=== PATIENT | male | born 1930 | race Caucasian/White ===

== ENCOUNTER 2016-11-16 11:22 | Emergency (ER) | payer OTHER ==
[~2016-11-16] VITALS: Ht 177.8 cm; Wt 77.2 kg
[~2016-11-16 11:22] MED LIST: ASPI325T45 PO; CEPH500C2 PO; METO-217 PO; NAPR1TAB9 PO; SULF-183 PO
[2016-11-16 11:28] VITALS: TEMP 36.8
[2016-11-16] MEDS ORDERED: SODIUM CHLORIDE 0.9% 500ML 500 ML IV STA (11:36)
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
[2016-11-16 12:02] VITALS: Ht 177.8 cm; Wt 77.2 kg
[2016-11-16 12:18] LABS: BASO % 0.2 %; BASO ABS # 0.01 K/uL (0-0.2); COMPLETE YES; EOS % 0.4 %; IG% 0.2 %; LYMPH % 27.8 %; LYMPH ABS # 1.26 K/uL (1.2-3.4); MEAN CELL VOLUME 89.4 fL (80-100); MEAN CORPUSCULAR HEMOGLOBIN 30.1 pg (25-34); MEAN CORPUSCULAR HGB CONC 33.6 g/dl (32-36); MEAN PLATELET VOLUME 9.3 fL (7.4-10.4); MONO % 5.7 %; NEUT % 65.7 %; PLATELET COUNT 168 K/uL (130-400); RED BLOOD COUNT 4.92 M/uL (4.7-6.1); WHITE BLOOD COUNT 4.53 K/uL (4.8-10.8)
[2016-11-16 12:36] LABS: BUN/CREATININE RATIO 27.9 (10-20); CALCIUM 9.1 mg/dl (8.5-10.1); CREATININE 0.82 mg/dl (0.60-1.40); POTASSIUM 3.8 mmol/L (3.5-5.1)
--- NOTE | 2016-11-16 12:38 | DIAGNOSTIC IMAGING REPORT ---
CT SCAN OF THE BRAIN WITHOUT IV CONTRAST CLINICAL HISTORY: Change in mental status. COMPARISON STUDY: No priors. TECHNIQUE: Unenhanced axial CT scan of the brain is performed from the vertex to the skull base. CT DOSE: 788.63 mGycm FINDINGS: Brain parenchyma: There are age-related involutional changes noting mild subcortical and periventricular microangiopathic change. There is no hemorrhage, mass effect, or evidence of acute territorial ischemia by CT criteria. Flannery-white matter is preserved. No extra-axial fluid collection is seen. Ventricles, sulci, cisterns: Prominent secondary to involutional change. Intracranial vasculature: There is atherosclerotic calcification of the cavernous carotid and vertebral arteries. Calvarium: Unremarkable. Sinuses and mastoids: The visualized paranasal sinuses are clear. The mastoid air cells are well pneumatized. Orbits: The bony orbits are grossly intact. IMPRESSION: There is no hemorrhage, mass effect, or evidence of acute territorial ischemia by CT criteria. Electronically signed by: Felton Green M.D. 11/16/2016 12:36 PM Dictated Date/Time: 11/16/2016 12:29 PM
[2016-11-16 12:46] LABS: THYROID STIMULATING HORMONE 1.85 uIu/ml (0.300-4.500)
[2016-11-16 13:20] VITALS: BP 140/79; PULSE 70; O2SAT 100
== END 2016-11-16 13:23 | disposition home or self-care (01) ==
LOC: EDBD 11:22 → C.EDC 11:23
DX: R41.82 Altered mental status, unspecified (principal); V46.0XXA Car driver injured in collision with other nonmotor vehicle in nontraffic accident, initial encounter; I48.91 Unspecified atrial fibrillation; I25.10 Atherosclerotic heart disease of native coronary artery without angina pectoris; I10 Essential (primary) hypertension; E78.00 Pure hypercholesterolemia, unspecified; Z98.61 Coronary angioplasty status; Z79.82 Long term (current) use of aspirin; Z79.899 Other long term (current) drug therapy

== ENCOUNTER 2018-03-27 08:21 | Inpatient (IN) ==
[2018-03-27] MEDS ORDERED: SODIUM CHLORIDE 0.9% 500 ML IV STA (08:33)
[2018-03-27] MEDS ORDERED: ONDANSETRON INJ 2 MG/ML 2 ML VIAL IV STA (08:33)
[2018-03-27] MEDS ORDERED: MoRPHine SULFATE 2 MG/ML CARP IV PRN (08:33)
--- NOTE | 2018-03-27 08:45 | Emergency Department Note ---
Entered by Joann Alvarez acting as a scribe for History of Present Illness General Chief complaint: Fall Time Seen by Provider: 03/27/18 08:24 Source: patient and family History of Present Illness Onset (ago): day(s) (yestrday afternoon) Location: right (hip) Pain Consistency: + other (episode) Maximum Pain Intensity: 7 Quality: + other (fall) Associated symptoms: + denies other symptoms (any other pain, eblow pain, congestion, recent cold, hitting his head) and + other (right hip pain); no cough The patient is an 88 year old male who presents to the Emergency Room with complaints of an episode of a fall occurring yesterday afternoon. The patients son states that he has a history of dementia. He states that yesterday afternoon he heard the patient fall. He states that when he got to the patient he was lying on his right side. He states that he got the patient up and he was complaining of right hip pain. He reports that he tried to talk the patient to coming into the ED, but he wouldnt come. The patients son states that throughout the evening he seemed to be doing okay. He states that he would walk with a walker short distances, but notes he normally does not walk with any assistance. He reports that as the evening went on, he started to complain of more right hip pain. He states that he decided to bring the patient to the ED this morning because he was nervous that the patient would fall again or that his hip was broken. He notes that the patient was unable to get out of bed. The patient denies any other pain, hitting his head, elbow pain, cough, congestion, recent cold, and use of blood thinners. Home Medications Home Medications Medication Instructions Recorded Confirmed Type acetaminophen [Tylenol Extra 500 mg PO UD PRN 03/27/18 03/27/18 History Strength] aspirin [Aspirin Low Dose] 81 mg PO DAILY 03/27/18 03/27/18 History metoprolol succinate [Toprol XL] 50 mg PO DAILY 03/27/18 03/27/18 History sertraline 25 mg PO QAM 03/27/18 03/27/18 History Allergies Allergy/AdvReac Type Severity Reaction Status Date / Time atorvastatin [From Lipitor] Allergy Unverified 03/27/18 11:16 clopidogrel [From Plavix] Allergy Unverified 03/27/18 11:16 sulfamethoxazole Allergy Unverified 03/27/18 11:16 [From Bactrim] trimethoprim [From Bactrim] Allergy Unverified 03/27/18 11:16 Past Med/Surg History Medical History Dementia Family History Other Family history non-contributory Social History marital status: / Current Living Situation: Family Current Living Situation Comment: reports living alone, unable to determine current occupational status: retired Feels Safe at Home: Yes Smoking Status: Unknown if ever smoked Hx Substance Use: No (unknown) Beliefs That Will Affect Care: None Preferred Language: Mexican Communication Ability: Impaired Therapy Director Required: No Review of Systems See HPI for pertinent positives & negatives. and A total of 10 systems reviewed and were otherwise negative Physical Exam Vital Signs Vital Signs - 24 hr 03/27/18 08:23 03/27/18 08:28 03/27/18 08:30 Temperature Temperature Source Sepsis Recent Fever Within 48 Hours Sepsis Action Taken by Nursing Pulse Rate 105 H 111 H 93 H Pulse Rate [Left Radial] Pulse Rhythm Pulse Strength Respiratory Rate 27 H 22 18 Respiratory Effort / Characteristics Respiratory Depth Blood Pressure 138/86 Blood Pressure [Right Arm] Blood Pressure Mean 103 Blood Pressure Mean [Right Arm] Blood Pressure Position [Right Arm] Pulse Oximetry 87 L 84 L Oxygen Delivery Method 03/27/18 08:32 03/27/18 08:33 03/27/18 09:00 Temperature 37.2 C Temperature Source Oral Sepsis Recent Fever Within 48 Hours No Sepsis Action Taken by Nursing No Action Required Pulse Rate 103 H 124 H 92 H Pulse Rate [Left Radial] Pulse Rhythm Regular Pulse Strength Normal Respiratory Rate 14 26 H 18 Respiratory Effort / Characteristics Non-Labored Respiratory Depth Normal Blood Pressure 146/77 H 138/86 Blood Pressure [Right Arm] Blood Pressure Mean 100 103 Blood Pressure Mean [Right Arm] Blood Pressure Position [Right Arm] Pulse Oximetry 98 99 Oxygen Delivery Method 03/27/18 09:02 03/27/18 09:03 03/27/18 09:14 Temperature Temperature Source Sepsis Recent Fever Within 48 Hours Sepsis Action Taken by Nursing Pulse Rate 99 H 105 H 124 H Pulse Rate [Left Radial] Pulse Rhythm Pulse Strength Respiratory Rate 23 19 21 Respiratory Effort / Characteristics Respiratory Depth Blood Pressure 132/79 123/75 Blood Pressure [Right Arm] Blood Pressure Mean 96 91 Blood Pressure Mean [Right Arm] Blood Pressure Position [Right Arm] Pulse Oximetry 98 99 97 Oxygen Delivery Method 03/27/18 09:30 03/27/18 09:31 03/27/18 09:47 Temperature Temperature Source Sepsis Recent Fever Within 48 Hours Sepsis Action Taken by Nursing Pulse Rate 105 H 99 H 99 H Pulse Rate [Left Radial] Pulse Rhythm Pulse Strength Respiratory Rate 19 17 21 Respiratory Effort / Characteristics Respiratory Depth Blood Pressure 121/88 104/74 Blood Pressure [Right Arm] Blood Pressure Mean 99 84 Blood Pressure Mean [Right Arm] Blood Pressure Position [Right Arm] Pulse Oximetry 82 L 94 Oxygen Delivery Method 03/27/18 10:00 03/27/18 10:03 03/27/18 10:16 Temperature Temperature Source Sepsis Recent Fever Within 48 Hours Sepsis Action Taken by Nursing Pulse Rate 122 H 96 H 101 H Pulse Rate [Left Radial] Pulse Rhythm Pulse Strength Respiratory Rate 18 19 22 Respiratory Effort / Characteristics Respiratory Depth Blood Pressure 129/111 H 123/90 Blood Pressure [Right Arm] Blood Pressure Mean 117 101 Blood Pressure Mean [Right Arm] Blood Pressure Position [Right Arm] Pulse Oximetry Oxygen Delivery Method 03/27/18 10:30 03/27/18 10:31 03/27/18 10:46 Temperature Temperature Source Sepsis Recent Fever Within 48 Hours Sepsis Action Taken by Nursing Pulse Rate 121 H 102 H 93 H Pulse Rate [Left Radial] Pulse Rhythm Pulse Strength Respiratory Rate 19 27 H 19 Respiratory Effort / Characteristics Respiratory Depth Blood Pressure 136/80 130/79 Blood Pressure [Right Arm] Blood Pressure Mean 98 96 Blood Pressure Mean [Right Arm] Blood Pressure Position [Right Arm] Pulse Oximetry Oxygen Delivery Method 03/27/18 11:00 03/27/18 11:01 03/27/18 11:30 Temperature 36.9 C Temperature Source Oral Sepsis Recent Fever Within 48 Hours Sepsis Action Taken by Nursing Pulse Rate 107 H 112 H Pulse Rate [Left Radial] 103 H Pulse Rhythm Pulse Strength Respiratory Rate 27 H 22 18 Respiratory Effort / Characteristics Respiratory Depth Blood Pressure 136/81 Blood Pressure [Right Arm] 137/95 Blood Pressure Mean 99 Blood Pressure Mean [Right Arm] 109 Blood Pressure Position [Right Arm] Lying Pulse Oximetry 94 Oxygen Delivery Method Room Air 12/25/18 12:29 Temperature Temperature Source Oral Sepsis Recent Fever Within 48 Hours Sepsis Action Taken by Nursing Pulse Rate Pulse Rate [Left Radial] Pulse Rhythm Pulse Strength Respiratory Rate Respiratory Effort / Characteristics Respiratory Depth Blood Pressure Blood Pressure [Right Arm] Blood Pressure Mean Blood Pressure Mean [Right Arm] Blood Pressure Position [Right Arm] Pulse Oximetry Oxygen Delivery Method GENERAL: Patient is in no acute distress. HEENT: No acute trauma, normocephalic atraumatic, mucous membranes moist, no nasal congestion, no scleral icterus. No scalp hematomas. NECK: No stridor, no adenopathy, no meningismus, trachea is midline. No cervical spine tenderness. LUNGS: Clear to auscultation bilaterally, no wheeze, no rhonchi, breath sounds equal. HEART: Tachycardic and irregular. No murmurs. ABDOMEN: Soft, nontender, bowel sounds positive, no hernias, no peritonitis. EXTREMITIES: Has pain to move the right hip. Right lower extremity is shortened and externally rotated. Some pain to palpate the right lateral hip. Both feet are warm to the touch. NEUROLOGIC: Awake, somewhat confuse. Moves all extremities. No focal motor deficits. SKIN: No rash, no jaundice, no diaphoresis. Course 0827: Past medical records reviewed. The patient was evaluated in room A12B, and a complete history and physical examination were performed. 14: I went to speak and update the son on the patient's test results, but he had left. I updated the patient on the test results and treatment plan. 19: I reviewed the patient's case with Dr. Wilkinson Hospitalist. He will evaluate the patient for further management. Consultations Consultation #1: I reviewed the patient's case with Dr. Wilkinson Hospitalist. He will evaluate the patient for further management. Time: 09:19 Administered Medications Lactated Ringer's (Lr) 1,000 mls @ 80 mls/hr IV .[id number] MIKALA Stop: 04/26/18 11:40 Last Admin: 03/27/18 11:50 Dose: 80 mls/hr Morphine Sulfate (Morphine Sulfate) 2 mg IV Q2H PRN PRN Reason: moderate pain (scale 4-6) Stop: 04/10/18 11:40 Last Admin: 03/27/18 13:07 Dose: 2 mg Discontinued Medications Sodium Chloride (Nss) 500 mls @ 999 mls/hr IV .Q31M STA Stop: 03/27/18 09:03 Last Infusion: 03/27/18 09:18 Dose: Admin: 03/27/18 08:52 Dose: 999 mls/hr Lorazepam (Ativan) 1 mg in 2 mls @ 2 mls/min IV NOW STA Stop: 03/27/18 09:01 Last Admin: 03/27/18 09:11 Dose: 2 mls/min Lorazepam (Ativan) 1 mg in 2 mls @ 2 mls/min IV NOW STA Stop: 03/27/18 13:21 Last Admin: 03/27/18 13:29 Dose: Not Given Lorazepam (Ativan) Confirm Administered Dose 2 mg .ROUTE .STK-MED ONE Stop: 03/27/18 13:24 Last Admin: 03/27/18 13:25 Dose: Not Given Metoprolol Tartrate (Lopressor) 5 mg IV NOW STA Stop: 03/27/18 09:11 Last Admin: 03/27/18 09:16 Dose: 5 mg Morphine Sulfate (Morphine Sulfate) 2 mg IV Q30M PRN PRN Reason: Moderate Pain (Rating 3,4,5,6) Stop: 04/10/18 08:32 Last Admin: 03/27/18 08:52 Dose: 2 mg Ondansetron HCl (Zofran) 4 mg IV NOW STA Stop: 03/27/18 08:34 Last Admin: 03/27/18 08:52 Dose: 4 mg Medical Decision Making Differential Diagnosis Differential diagnoses include hip fracture, hip contusion, pelvic fracture, knee fracture, intracranial injury, C-spine injury, dehydration, electrolyte imbalance, infection. Medical Records Attestation: I reviewed the patient's medical records. Home Medications Current Medication List: was personally reviewed by me Laboratory Data Attestation: I reviewed the patient's lab results. Result diagrams: 03/27/18 08:38 03/27/18 08:38 Lab Results 03/27/18 03/27/18 03/27/18 Range/Units 08:38 08:38 08:38 WBC 8.63 (4.8-10.8) K/uL RBC 5.14 (4.7-6.1) M/uL Hgb 15.4 (14.0-18.0) g/dL Hct 45.1 (42-52) % MCV 87.7 (80-100) fL MCH 30.0 (25-34) pg MCHC 34.1 (32-36) g/dL RDW Std Deviation 40.9 (36.4-46.3) fL RDW Coeff of Jack 12.7 (11.5-14.5) % Plt Count 172 (130-400) K/uL MPV 10.4 (7.4-10.4) fL Immature Gran % (Auto) 0.2 % Neut % (Auto) 87.3 % Lymph % (Auto) 6.4 % [place] % (Auto) 6.0 % Eos % (Auto) 0.0 % Baso % (Auto) 0.1 % Immature Gran # (Auto) 0.02 (0.00-0.02) K/uL Neut # (Auto) 7.53 H (1.4-6.5) K/uL Lymph # (Auto) 0.55 L (1.2-3.4) K/uL [place] # (Auto) 0.52 (0.11-0.59) K/uL Eos # (Auto) 0.00 (0-0.5) K/uL Baso # (Auto) 0.01 (0-0.2) K/uL PT 11.4 (9.0-12.0) Seconds INR 1.1 (0.9-1.1) APTT 27.6 (21.0-31.0) Seconds PTT Ratio 1.1 Sodium 136 (136-145) mmol/L Potassium 3.9 (3.5-5.1) mmol/L Chloride 101 (98-107) mmol/L Carbon Dioxide 23 (21-32) mmol/L Anion Gap 12.0 H (3-11) BUN 23 H (7-18) mg/dl Creatinine 1.00 (0.6-1.4) mg/dl Est Cr Clr Drug Dosing 52.7 ml/min Est GFR ( Amer) 77.5 Est GFR (Non-Af Amer) 66.9 BUN/Creatinine Ratio 23.0 H (10-20) Glucose 141 H (70-99) mg/dl Calcium 9.3 (8.5-10.1) mg/dl Magnesium 2.3 (1.8-2.4) mg/dl Troponin I < 0.015 (0-0.045) ng/ml Urine Color Urine Appearance (Clear) Urine pH (4.5-7.5) Ur Specific [place] (1.000-1.030) Urine Protein (Negative) Urine Glucose (UA) (Negative) Urine Ketones (Negative) Urine Blood (Negative) Urine Nitrite (Negative) Urine Bilirubin (Negative) Urine Urobilinogen (Negative) Ur Leukocyte Esterase (Negative) Urine WBC (Auto) (0-5) /hpf Urine RBC (Auto) (0-4) /hpf U Hyaline Cast (Auto) (0-5) /lpf U Epithel Cells (Auto) (0-5) /lpf Urine Bacteria (Auto) (Negative) Nasal Screen MRSA (PCR) (Negative) Blood Type Antibody Screen 03/27/18 03/27/18 03/27/18 Range/Units 08:38 09:55 11:45 WBC (4.8-10.8) K/uL RBC (4.7-6.1) M/uL Hgb (14.0-18.0) g/dL Hct (42-52) % MCV (80-100) fL MCH (25-34) pg MCHC (32-36) g/dL RDW Std Deviation (36.4-46.3) fL RDW Coeff of Jack (11.5-14.5) % Plt Count (130-400) K/uL MPV (7.4-10.4) fL Immature Gran % (Auto) % Neut % (Auto) % Lymph % (Auto) % [place] % (Auto) % Eos % (Auto) % Baso % (Auto) % Immature Gran # (Auto) (0.00-0.02) K/uL Neut # (Auto) (1.4-6.5) K/uL Lymph # (Auto) (1.2-3.4) K/uL [place] # (Auto) (0.11-0.59) K/uL Eos # (Auto) (0-0.5) K/uL Baso # (Auto) (0-0.2) K/uL PT (9.0-12.0) Seconds INR (0.9-1.1) APTT (21.0-31.0) Seconds PTT Ratio Sodium (136-145) mmol/L Potassium (3.5-5.1) mmol/L Chloride (98-107) mmol/L Carbon Dioxide (21-32) mmol/L Anion Gap (3-11) BUN (7-18) mg/dl Creatinine (0.6-1.4) mg/dl Est Cr Clr Drug Dosing ml/min Est GFR ( Amer) Est GFR (Non-Af Amer) BUN/Creatinine Ratio (10-20) Glucose (70-99) mg/dl Calcium (8.5-10.1) mg/dl Magnesium (1.8-2.4) mg/dl Troponin I (0-0.045) ng/ml Urine Color [place] Urine Appearance Clear (Clear) Urine pH 5.5 (4.5-7.5) Ur Specific [place] 1.025 (1.000-1.030) Urine Protein Negative (Negative) Urine Glucose (UA) Negative (Negative) Urine Ketones Trace H (Negative) Urine Blood 1+ H (Negative) Urine Nitrite Negative (Negative) Urine Bilirubin Negative (Negative) Urine Urobilinogen Negative (Negative) Ur Leukocyte Esterase Negative (Negative) Urine WBC (Auto) 0 (0-5) /hpf Urine RBC (Auto) 10-30 H (0-4) /hpf U Hyaline Cast (Auto) 0 (0-5) /lpf U Epithel Cells (Auto) 10-20 H (0-5) /lpf Urine Bacteria (Auto) Negative (Negative) Nasal Screen MRSA (PCR) Negative (Negative) Blood Type O Positive Antibody Screen NEGATIVE Imaging Data Radiologist's Impression: Radiology results as stated below per my review and the radiologist's interpretation: XR chest 1V portable HISTORY: 88 years-old Male hip fx acute chest trauma status post fall with acute right hip fracture COMPARISON: Chest radiographs 11/13/2008 TECHNIQUE: Portable supine AP view of the chest FINDINGS: Cardiomediastinal and hilar silhouettes are within normal limits. No pneumothorax, pleural effusion, focal airspace consolidation or overt pulmonary edema. Degenerative changes are seen about the shoulders and spine. IMPRESSION: No acute process. The above report was generated using voice recognition software. It may contain grammatical, syntax or spelling errors. Electronically signed by: Jean Paul Duenas M.D. 03/27/2018 9:12 AM XR hip RT 2-3V w pelvis HISTORY: 88 years-old Male fall, pain acute right hip pain status post fall COMPARISON: None available TECHNIQUE: AP view of the pelvis with 2 views of the right hip FINDINGS: Acute transcervical fracture of the right hip with mild apex superior lateral angulation. Mild impaction without significant displacement. 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 Demineralized appearance of the bones. No acute pelvic fracture. Degenerative changes of the SI joints and lower lumbar spine. Peripheral arterial calcifications are noted. IMPRESSION: Acute mildly impacted transcervical fracture of the right femur. The above report was generated using voice recognition software. It may contain grammatical, syntax or spelling errors. Electronically signed by: Jean Paul Duenas M.D. 03/27/2018 9:10 AM ECG Data Attestation: I personally reviewed and interpreted this ECG as follows: Indication: tachycardia Rate (beats per minute): 103 Rhythm: atrial fibrillation Findings: + nonspecific-ST abn (diffuse) and + PVC; no ST elevation Blood Pressure Blood Pressure Findings: Normal blood pressure Blood Pressure Disposition: did not require urgent referral MDM Narrative There is no leukocytosis or concerning anemia. No significant electrolyte abnormality or kidney failure. EKG showed A. fib without acute ischemia. Cardiac enzyme testing x1 was not consistent with acute cardiac injury. There was no coagulopathy. Urinalysis did not show evidence for infection. Chest film did not show pneumonia or CHF. Right hip and pelvis films show a right hip fracture, no pelvic fracture. By exam, there was no evidence for injury to the head, neck, chest or abdomen. The patient received IV Ativan for his agitation. He received IV morphine for pain. He was given IV Zofran and IV saline. He received IV Lopressor for the faster heart rate/A. fib. The patient needs hospitalization. Orthopedics will need to be involved. I spoke to the patient about his findings. The son was no longer in the room. I did speak with the oil field caser. The on-call hospitalist was consulted. Impression & Plan Closed fracture of right hip, Atrial fibrillation, Fall Discharge Plan Visit Data *Final* Discharge Date/Time: 03/27/18 11:11 Chief Complaint: Fall ED Provider: Felton Awad Discharge Problem: Closed fracture of right hip, Atrial fibrillation, Fall Patient Disposition: Admitted As Inpatient Discharge Instructions Interventions: ED Discharge Assessment Last Done: 03/27/18 11:11 The scribe's documentation has been prepared under my direction and personally reviewed by me in its entirety. I confirm that the note above accurately reflects all work, treatment, procedures, and medical decision making performed by me.
[2018-03-27 09:00] LABS: Basophils # (auto) 0.01 K/uL (0-0.2); Basophils % (auto) 0.1 %; Hematocrit (blood only) 45.1 % (42-52); Hemoglobin 15.4 g/dL (14.0-18.0); Immature Granulocytes # (auto) 0.02 K/uL (0.00-0.02); Immature Granulocytes % (auto) 0.2 %; Lymphocytes # (auto) 0.55 K/uL (1.2-3.4); Lymphocytes % (auto) 6.4 %; Mean Corpuscular Hgb Conc 34.1 g/dL (32-36); Mean Corpuscular Volume 87.7 fL (80-100); Mean Platelet Volume 10.4 fL (7.4-10.4); Monocytes # (auto) 0.52 K/uL (0.11-0.59); Neutrophils # (auto) 7.53 K/uL (1.4-6.5); Neutrophils % (auto) 87.3 %; Platelet Count 172 K/uL (130-400); RDW Coefficient of Variation 12.7 % (11.5-14.5); RDW Standard Deviation 40.9 fL (36.4-46.3); Red Blood Count 5.14 M/uL (4.7-6.1); White Blood Count 8.63 K/uL (4.8-10.8)
[2018-03-27] MEDS ORDERED: LORazepam 1 MG/2 ML VIAL IV STA ×2 (09:00→13:20)
[2018-03-27 09:09] LABS: INR 1.1 (0.9-1.1); Partial Thromboplastin Ratio 1.1; Partial Thromboplastin Time 27.6 Seconds (21.0-31.0); Prothrombin Time 11.4 Seconds (9.0-12.0)
[2018-03-27] MEDS ORDERED: METOPROLOL TARTRATE 1 MG/ML VIAL IV STA (09:10)
--- NOTE | 2018-03-27 09:13 | XRay Report ---
XR hip RT 2-3V w pelvis HISTORY: 88 years-old Male fall, pain acute right hip pain status post fall COMPARISON: None available TECHNIQUE: AP view of the pelvis with 2 views of the right hip FINDINGS: Acute transcervical fracture of the right hip with mild apex superior lateral angulation. Mild impact ion without significant displacement. Mild to moderate osteoarthritis of the bilateral femoral acetab ular joints. Demineralized appearance of the bones. No acute pelvic fracture. Degenerative changes of the SI joints and lower lumbar spine. Peripheral arterial calcifications are noted. IMPRESSION: Acute mildly impacted transcervical fracture of the right femur. The above report was generated using voice recognition software. It may contain grammatical, syntax o r spelling errors. Electronically signed by: Jean Paul Duenas M.D. 03/27/2018 9:10 AM
--- NOTE | 2018-03-27 09:14 | XRay Report ---
XR chest 1V portable HISTORY: 88 years-old Male hip fx acute chest trauma status post fall with acute right hip fracture COMPARISON: Chest radiographs 11/13/2008 TECHNIQUE: Portable supine AP view of the chest FINDINGS: Cardiomediastinal and hilar silhouettes are within normal limits. No pneumothorax, pleural effusion, focal airspace consolidation or overt pulmonary edema. Degenerative changes are seen about the should ers and spine. IMPRESSION: No acute process. The above report was generated using voice recognition software. It may contain grammatical, syntax o r spelling errors. Electronically signed by: Jean Paul Duenas M.D. 03/27/2018 9:12 AM
[2018-03-27 09:15] LABS: Blood Urea Nitrogen 23 mg/dl (7-18); Calcium 9.3 mg/dl (8.5-10.1); Carbon Dioxide 23 mmol/L (21-32); Chloride 101 mmol/L (98-107); Creatinine Clr Calc Pharmacy 52.7 ml/min; Est GFR (African American) 77.5; Est GFR (Non-African American) 66.9; Glucose 141 mg/dl (70-99); Magnesium 2.3 mg/dl (1.8-2.4); Potassium 3.9 mmol/L (3.5-5.1); Sodium 136 mmol/L (136-145)
[2018-03-27 09:20] LABS: Troponin I < 0.015 ng/ml (0-0.045)
[2018-03-27 10:08] LABS: Appearance Urine Clear (Clear); Bacteria Urine Automated Negative (Negative); Bilirubin Urine Negative (Negative); Cast Urine Automated 0 /lpf (0-5); Color Urine Orange; Glucose Urine UA Negative (Negative); Ketones Urine Trace (Negative); Leukocyte Esterase Urine Negative (Negative); Nitrite Urine Negative (Negative); Protein Urine Negative (Negative); Specific Gravity Urine 1.025 (1.000-1.030); Urobilinogen Urine Negative (Negative); WBC Urine Automated 0 /hpf (0-5); pH Urine 5.5 (4.5-7.5)
--- NOTE | 2018-03-27 10:39 | History & Physical Report ---
Date of Service March 27, 2018 Assessment & Plan (1) Closed fracture of right hip: 88M here for mechanical fall while at home 03/26, brought to ED by son with whom he lives, due to limited mobility and pain. Found to have closed right hip fracture on XR. Closed fracture of right hip - as seen on XR - not currently in any pain - tylenol PRN for mild pain - morphine IV for mod pain - Non urgent ortho/anesthesia consult - NPO with IVF @ 80 ml/hr - SCDs, no chemical anticoagulation while await whether operative per ortho - PT/OT will be ordered once ortho sees Paroxysmal Atrial fibrillation - Pt was also found to be in Afib in the ER and given 5mg IV Metorpolol. - On review of outpatient records, pt has known PAF and is supposed to be on Toprol XL 50mg daily, has refused coumadin "adamantly" in the outpatient setting due to previous episode of genitourinary bleeding. - rate controlled 90s-low 100s - no anginal symptoms, Trop x1 wnl (will not trend) - Due to lack of hospital records will await echo results prior to obtaining risk stratification, pt will likely be moderate to high risk surgical candidate. -non urgent TTE pending -last TSH from Nov 2016 1.85. -continue home Toprol XL 50mg daily Ongoing medical issues: CAD - RCA stent in 2014 - allegedly allergic to lipitor and plavix - cont home ASA 81mg daily Bladder cancer - followed by urology as of 2015 with cystoscopy with fulguration for bladder tumor 2014 Dementia -stable, reorientation Depression -cont PO sertraline FEN/GI: LR running at 80ml/hr while NPO. DVT ppx: SCDs. Chem anticoag contraindicated while possibly pre-op CODE STATUS: FULL DISPO: Tele to monitor afib. Present on Admission?: Yes (2) Atrial fibrillation: Present on Admission?: Yes (3) Fall: Present on Admission?: Yes (4) DVT prophylaxis: (5) Depression: Present on Admission?: Yes (6) Dementia: Present on Admission?: Yes History of Present Illness Chief Complaint: mechanical fall while at home, closed right hip fracture Primary Care Provider: David Araya MD 88M here for mechanical fall while at home 03/26, brought to ED by son with whom he lives, due to limited mobility and pain. Found to have closed right hip fracture on XR. Family not present in room during exam. Very little HPI provided by patient due to baseline of moderate to advanced dementia. HPI received from admitting ER Doc. Pt was accompanied by son, per son pt lives at home, has a baseline of dementia, there was a mechanical fall that occured on the evening of 03/26/18. Pt declined coming to the hospital, pt went to sleep and woke up in severe pain and inability to walk. Pt was brought into the ER and was found to have an acute mildly impacted transcervical fracture of the right femur. Pt was also found to be in Afib in the ER and given 5mg IV Metorpolol. On review of outpatient records, pt has known paroxysmal atrial fibrillation and is to be on Toprol XL 50mg daily, has refused coumadin "adamantly" in the outpatient setting due to previous episode of genitourinary bleeding. ED Course: Pt received NSS, Ativan and Morphine in the ER. Pt was also found to be in Afib without any previous history of Afib. Pt was given 5mg IV Metoprolol in the ER. PMH is also significant for CAD with cardiac catheterization 2014 showed 40% left main disease as well as mild to moderate stenosis in other vessels + Bare- metal stent was placed in the RCA at that time, Glaucoma, HLD, HTN, bladder cancer, memory impairment. PSH cystoscopy with fulguration for bladder tumor 2014 Meds: ASA, Toprol XL 50mg daily ALL: lipitor, plavix, bactrim DS Allergies Allergy/AdvReac Type Severity Reaction Status Date / Time atorvastatin [From Lipitor] Allergy Unverified 03/27/18 11:16 clopidogrel [From Plavix] Allergy Unverified 03/27/18 11:16 sulfamethoxazole Allergy Unverified 03/27/18 11:16 [From Bactrim] trimethoprim [From Bactrim] Allergy Unverified 03/27/18 11:16 Home Medications Home Medications Medication Instructions Recorded Confirmed Type acetaminophen [Tylenol Extra 500 mg PO UD PRN 03/27/18 03/27/18 History Strength] aspirin [Aspirin Low Dose] 81 mg PO DAILY 03/27/18 03/27/18 History metoprolol succinate [Toprol XL] 50 mg PO DAILY 03/27/18 03/27/18 History sertraline 25 mg PO QAM 03/27/18 03/27/18 History Past Med/Surg History Medical History Dementia Family History Other Family history non-contributory Social History marital status: / Current Living Situation: Family Current Living Situation Comment: reports living alone, unable to determine current occupational status: retired Feels Safe at Home: Yes Smoking Status: Unknown if ever smoked Hx Substance Use: No (unknown) Beliefs That Will Affect Care: None Preferred Language: Moroccan Communication Ability: Impaired [place] Required: No Review of Systems All systems reviewed & are unremarkable except as noted in HPI & below (denies pain in head, chest, abdomen, or lower extremities. ) Physical Exam 2 Vital Signs (Past 24 Hours): Last Vital Signs Temp 37.2 C 03/27/18 08:33 Pulse 101 H 03/27/18 10:16 Resp 22 03/27/18 10:16 BP 123/90 03/27/18 10:16 Pulse Ox 94 03/27/18 09:47 Physical Exam: Vitals noted as above. Atrial fibrillation on telemetry, rate < 100. GENERAL: Awake, oriented to person but not to time or place. Well-appearing, in no distress HENT: Normocephalic, atraumatic. EYES: Normal conjunctiva. Sclera non-icteric. NECK: Supple. Full range of motion. no JVD RESPIRATORY: Clear to auscultation. CARDIAC: Irreg/irreg, rate <100. Extremities warm and well perfused. Pulses equal. ABDOMEN: Soft, non-distended. No tenderness to palpation. No rebound or guarding. No masses. LOWER EXTREMITIES: Calves are equal size bilaterally and non-tender. No edema. No discoloration. MSK: RLE is externally rotated, neurovascularly in tact. Mild TTP at right hip. NEURO: No gross focal motor deficits noted, CN II-XII in tact. SKIN: No rash or jaundice noted. No visible bruising. Results & Data Laboratory Results 03/27/18 03/27/18 03/27/18 Range/Units 09:55 08:38 08:38 WBC (4.8-10.8) K/uL RBC (4.7-6.1) M/uL Hgb (14.0-18.0) g/dL Hct (42-52) % MCV (80-100) fL MCH (25-34) pg MCHC (32-36) g/dL RDW Std Deviation (36.4-46.3) fL RDW Coeff of Jack (11.5-14.5) % Plt Count (130-400) K/uL MPV (7.4-10.4) fL Immature Gran % (Auto) % Neut % (Auto) % Lymph % (Auto) % [place] % (Auto) % Eos % (Auto) % Baso % (Auto) % Immature Gran # (Auto) (0.00-0.02) K/uL Neut # (Auto) (1.4-6.5) K/uL Lymph # (Auto) (1.2-3.4) K/uL [place] # (Auto) (0.11-0.59) K/uL Eos # (Auto) (0-0.5) K/uL Baso # (Auto) (0-0.2) K/uL PT (9.0-12.0) Seconds INR (0.9-1.1) APTT (21.0-31.0) Seconds PTT Ratio Sodium 136 (136-145) mmol/L Potassium 3.9 (3.5-5.1) mmol/L Chloride 101 (98-107) mmol/L Carbon Dioxide 23 (21-32) mmol/L Anion Gap 12.0 H (3-11) BUN 23 H (7-18) mg/dl Creatinine 1.00 (0.6-1.4) mg/dl Est Cr Clr Drug Dosing 52.7 ml/min Est GFR ( Amer) 77.5 Est GFR (Non-Af Amer) 66.9 BUN/Creatinine Ratio 23.0 H (10-20) Glucose 141 H (70-99) mg/dl Calcium 9.3 (8.5-10.1) mg/dl Magnesium 2.3 (1.8-2.4) mg/dl Troponin I < 0.015 (0-0.045) ng/ml Urine Color [place] Urine Appearance Clear (Clear) Urine pH 5.5 (4.5-7.5) Ur Specific [place] 1.025 (1.000-1.030) Urine Protein Negative (Negative) Urine Glucose (UA) Negative (Negative) Urine Ketones Trace H (Negative) Urine Blood 1+ H (Negative) Urine Nitrite Negative (Negative) Urine Bilirubin Negative (Negative) Urine Urobilinogen Negative (Negative) Ur Leukocyte Esterase Negative (Negative) Urine WBC (Auto) 0 (0-5) /hpf Urine RBC (Auto) 10-30 H (0-4) /hpf U Hyaline Cast (Auto) 0 (0-5) /lpf U Epithel Cells (Auto) 10-20 H (0-5) /lpf Urine Bacteria (Auto) Negative (Negative) Blood Type O Positive Antibody Screen NEGATIVE 03/27/18 03/27/18 Range/Units 08:38 08:38 WBC 8.63 (4.8-10.8) K/uL RBC 5.14 (4.7-6.1) M/uL Hgb 15.4 (14.0-18.0) g/dL Hct 45.1 (42-52) % MCV 87.7 (80-100) fL MCH 30.0 (25-34) pg MCHC 34.1 (32-36) g/dL RDW Std Deviation 40.9 (36.4-46.3) fL RDW Coeff of Jack 12.7 (11.5-14.5) % Plt Count 172 (130-400) K/uL MPV 10.4 (7.4-10.4) fL Immature Gran % (Auto) 0.2 % Neut % (Auto) 87.3 % Lymph % (Auto) 6.4 % [place] % (Auto) 6.0 % Eos % (Auto) 0.0 % Baso % (Auto) 0.1 % Immature Gran # (Auto) 0.02 (0.00-0.02) K/uL Neut # (Auto) 7.53 H (1.4-6.5) K/uL Lymph # (Auto) 0.55 L (1.2-3.4) K/uL [place] # (Auto) 0.52 (0.11-0.59) K/uL Eos # (Auto) 0.00 (0-0.5) K/uL Baso # (Auto) 0.01 (0-0.2) K/uL PT 11.4 (9.0-12.0) Seconds INR 1.1 (0.9-1.1) APTT 27.6 (21.0-31.0) Seconds PTT Ratio 1.1 Sodium (136-145) mmol/L Potassium (3.5-5.1) mmol/L Chloride (98-107) mmol/L Carbon Dioxide (21-32) mmol/L Anion Gap (3-11) BUN (7-18) mg/dl Creatinine (0.6-1.4) mg/dl Est Cr Clr Drug Dosing ml/min Est GFR ( Amer) Est GFR (Non-Af Amer) BUN/Creatinine Ratio (10-20) Glucose (70-99) mg/dl Calcium (8.5-10.1) mg/dl Magnesium (1.8-2.4) mg/dl Troponin I (0-0.045) ng/ml Urine Color Urine Appearance (Clear) Urine pH (4.5-7.5) Ur Specific [place] (1.000-1.030) Urine Protein (Negative) Urine Glucose (UA) (Negative) Urine Ketones (Negative) Urine Blood (Negative) Urine Nitrite (Negative) Urine Bilirubin (Negative) Urine Urobilinogen (Negative) Ur Leukocyte Esterase (Negative) Urine WBC (Auto) (0-5) /hpf Urine RBC (Auto) (0-4) /hpf U Hyaline Cast (Auto) (0-5) /lpf U Epithel Cells (Auto) (0-5) /lpf Urine Bacteria (Auto) (Negative) Blood Type Antibody Screen Diagnostic Findings 03/27/18 XR hip RT 2-3V w pelvis reviewed, shows acute mildly impacted transcervical fracture of the right femur. 03/27/18 CXR shows no acute process. Medications Administered Current Inpatient Medications Morphine Sulfate (Morphine Sulfate) 2 mg IV Q30M PRN PRN Reason: Moderate Pain (Rating 3,4,5,6) Stop: 04/10/18 08:32 Last Admin: 03/27/18 08:52 Dose: 2 mg ECG Additional Comments: atrial fibrillation, rate 103, QTc 461. Code Status & VTE Plan Code Status FULL VTE Prophylaxis Plan VTE Prophylaxis will be ordered: Yes Reason for no VTE drug order: Contraindicated Supervising Physician Co-Signing Physician Notes I personally examined the patient and verified all bryant points of history and exam, discussed case, and agree with decision making with Dr Fernandez. No meaningful HPI or review of systems obtainable from patient. The son is not present, and it appears he left fairly early in the ER course. I attempted to call the number in the chart, it goes to a voicemail of a name completely different than the name listed as the contact, therefore due to hipaa, I do not feel it appropriate to leave any message right now. Vitals noted, in general he is disoriented but appears to be in no distress. HEENT normal cephalic atraumatic mucous membranes are moist. Cardio is regular without rubs murmurs gallops. Lungs clear to auscultation bilaterally no rales rhonchi or wheezes good effort. Skin shows no rashes, no pallor, no icterus. Hip fractureorthopedics consult for repair. Despite his prior history, risks/ benefits favor repair, and therefore he is medically acceptable risk for the planned procedure. Anesthesia has been consulted. Check vitamin D, consider DEXA as an outpatient. DVT prophylaxispostop per orthopedics, for today we will give him a one-time dose of heparin. Dementia with agitationpreop with a broken hip that he is not aware of, the situation is somewhat difficult. Right now we will try with pain control ( Tylenol Toradol and morphine) and gentle sedation with Ativan which we will immediately cease after the surgery. Atrial fibrillationrate is controlled, continue current care otherwise, otherwise as above. I am unable to reach the son regarding CODE STATUS, discharge planning, etc. We will continue to try to reach family. For now, given the high morbidity/ mortality that comes with an untreated hip fracture, it appears most prudent to proceed with a plan towards repair. Resident Activity Tracking Resident Involvement: Resident Care Provided Care Provided: [facility] Medicine _ (1) Atrial fibrillation Atrial fibrillation type: unspecified Qualified Code(s): I48.91 - Unspecified atrial fibrillation (2) Fall Encounter type: initial encounter Qualified Code(s): W19.XXXA - Unspecified fall, initial encounter (3) Closed fracture of right hip Encounter type: initial encounter Fracture healing: Qualified Code(s): S72.001A - Fracture of unspecified part of neck of right femur, initial encounter for closed fracture
[2018-03-27] MEDS ORDERED: ONDANSETRON INJ 2 MG/ML 2 ML VIAL IV PRN (11:41)
[2018-03-27] MEDS ORDERED: SOD PHOSPHATE/SOD BIPHOSPHATE ENEMA 132 ML BTL PR PRN (11:41)
[2018-03-27] MEDS ORDERED: MAGNESIUM HYDROXIDE SUSP 30 ML UDC PO PRN (11:41)
[2018-03-27] MEDS ORDERED: ACETAMINOPHEN 325 MG TAB PO PRN (11:41)
[2018-03-27] MEDS ORDERED: BISACODYL 10 MG SUPP PR PRN (11:41)
[2018-03-27] MEDS ORDERED: NALOXONE HCL 0.4 MG/1 ML VIAL/CARP IV PRN (11:41)
[2018-03-27] MEDS: LACTATED RINGER'S 1,000 ML IV SCH ×2 (11:50→23:41)
[2018-03-27] MEDS: MoRPHine SULFATE 2 MG/ML CARP IV PRN (13:07)
[2018-03-27] MEDS ORDERED: LORazepam 2 MG/4 ML VIAL ONE (13:23)
[2018-03-27] MEDS ORDERED: HEPARIN SOD 5,000 UNIT/0.5 ML VIAL SQ ONE (16:15)
[2018-03-27] MEDS: ACETAMINOPHEN 325 MG TAB PO SCH (18:28)
[2018-03-27] MEDS: ACETAMINOPHEN 65 ML IV SCH ×2 (18:32→23:40)
[2018-03-27] MEDS ORDERED: ACETAMINOPHEN 1000 MG/100 ML IV IV SCH (20:00)
[2018-03-27] MEDS: DOCUSATE SODIUM/SENNA 50/8.6MG TAB PO SCH (21:29)
--- NOTE | 2018-03-27 22:30 | Anesthesiology Consultation ---
Date of Service March 27, 2018 Assessment & Plan (1) Encounter for pre-operative examination: Chart Review Chart Review: charge entry clerk initiated pending echo and completion of medicine consult History Height/Weight Height: 5 ft 10 in Weight: 79 kg Allergies Allergy/AdvReac Type Severity Reaction Status Date / Time atorvastatin [From Lipitor] Allergy Unverified 03/27/18 11:16 clopidogrel [From Plavix] Allergy Unverified 03/27/18 11:16 sulfamethoxazole Allergy Unverified 03/27/18 11:16 [From Bactrim] trimethoprim [From Bactrim] Allergy Unverified 03/27/18 11:16 Medications Home Medications Medication Instructions Recorded Confirmed Last Taken acetaminophen [Tylenol Extra 500 mg PO UD PRN 03/27/18 03/27/18 03/27/18 07:30 Strength] aspirin [Aspirin Low Dose] 81 mg PO DAILY 03/27/18 03/27/18 Unknown metoprolol succinate [Toprol XL] 50 mg PO DAILY 03/27/18 03/27/18 Unknown sertraline 25 mg PO QAM 03/27/18 03/27/18 03/27/18 07:30 Active Medications Generic Name Dose Route Start Last Admin Trade Name Freq PRN Reason Stop Dose Admin Acetaminophen 650 mg 03/27/18 17:00 03/27/18 18:28 Tylenol PO 04/26/18 18:06 Not Given QID MIKALA Lactated Ringer's 1,000 mls @ 80 mls/hr 03/27/18 11:41 03/27/18 11:50 Lr IV 04/26/18 11:40 80 mls/hr .[id number] MIKALA Administration Acetaminophen 65 mls @ 260 mls/hr 03/27/18 18:15 03/27/18 20:03 Ofirmev IV 03/29/18 19:59 Infused Q6H MIKALA Infusion Morphine Sulfate 2 mg 03/27/18 11:41 03/27/18 13:07 Morphine Sulfate IV 04/10/18 11:40 2 mg Q2H PRN Administration moderate pain (scale 4-6) Senna/Docusate Sodium 2 tab 03/27/18 21:00 03/27/18 21:29 Senokot S PO 04/26/18 20:59 Not Given HS MIKALA Beta Ashvin Beta Ashvin Taken Within 24 Hours: Yes Past Medical History Medical History Bladder cancer CAD (coronary artery disease) Dementia Paroxysmal atrial fibrillation Past Family History Family History Other Family history non-contributory Past Surgical History Surgical History Hx of transurethral destruction of bladder lesion Stented coronary artery Social History Smoking Status: Unknown if ever smoked Alcohol Intake Frequency Comment: unknowns Hx Substance Use: No (unknown) Physical Exam Vital Signs Last Vital Signs Temp 36.6 C 03/27/18 19:57 Pulse 110 H 03/27/18 19:57 Resp 20 03/27/18 19:57 BP 136/82 03/27/18 19:57 Pulse Ox 95 03/27/18 19:57 Testing Electrocardiogram Date: 03/27/18 Findings: + AFIB @ (103 possible old inf [place]) Echocardiogram pending Laboratory Results 03/27/18 08:38 03/27/18 08:38 Blood Type O Positive 03/27/18 08:38 Antibody Screen NEGATIVE 03/27/18 08:38 PT 11.4 Seconds (9.0-12.0) 03/27/18 08:38 INR 1.1 (0.9-1.1) 03/27/18 08:38 APTT 27.6 Seconds (21.0-31.0) 03/27/18 08:38 Urine Color [place] 03/27/18 09:55 Urine Appearance Clear (Clear) 03/27/18 09:55 Urine pH 5.5 (4.5-7.5) 03/27/18 09:55 Ur Specific [place] 1.025 (1.000-1.030) 03/27/18 09:55 Urine Protein Negative (Negative) 03/27/18 09:55 Urine Glucose (UA) Negative (Negative) 03/27/18 09:55 Urine Ketones Trace (Negative) H 03/27/18 09:55 Urine Nitrite Negative (Negative) 03/27/18 09:55 Ur Leukocyte Esterase Negative (Negative) 03/27/18 09:55 Urine WBC (Auto) 0 /hpf (0-5) 03/27/18 09:55 Urine RBC (Auto) 10-30 /hpf (0-4) H 03/27/18 09:55 U Hyaline Cast (Auto) 0 /lpf (0-5) 03/27/18 09:55 U Epithel Cells (Auto) 10-20 /lpf (0-5) H 03/27/18 09:55 Urine Bacteria (Auto) Negative (Negative) 03/27/18 09:55
[2018-03-28] MEDS: LORazepam 0.5 MG/1 ML VIAL IV PRN (00:12)
[2018-03-28] MEDS ORDERED: METOPROLOL TARTRATE 1 MG/ML VIAL IV PRN (01:28)
[2018-03-28] MEDS: ACETAMINOPHEN 65 ML IV SCH (05:52)
[2018-03-28] MEDS ORDERED: CEFAZOLIN 2000MG 2,000 MG/15 ML SYR IV SCH (06:00)
[2018-03-28] MEDS ORDERED: INFLUENZA VIRUS QUAD VACCINE 0.5 ML SYR IM ONE (06:15)
--- NOTE | 2018-03-28 07:07 | Family Medicine Progress Note ---
Date of Service March 28, 2018 Assessment & Plan (1) Closed fracture of right hip: 88M here for mechanical fall while at home 03/26, brought to ED by son with whom he lives, due to limited mobility and pain. Found to have closed right hip fracture on XR. Closed fracture of right hip - as seen on XR - Vit d level at 20 - plan for surgery today, ~13:00. - tylenol scheduled PO - morphine IV PRN for mod pain - NPO with IVF @ 80 ml/hr - SCDs, no chemical anticoagulation while await whether operative per ortho - PT/OT will be ordered once ortho sees Paroxysmal Atrial fibrillation - Pt was also found to be in Afib in the ER and given 5mg IV Metorpolol. - On review of outpatient records, pt has known PAF and is supposed to be on Toprol XL 50mg daily, has refused coumadin "adamantly" in the outpatient setting due to previous episode of genitourinary bleeding. - rate controlled 90s-low 100s - no anginal symptoms, Trop x1 wnl (will not trend) -non urgent TTE pending, performed, reading is pending. -last TSH from Nov 2016 1.85. -continue home Toprol XL 50mg daily Ongoing medical issues: CAD - RCA stent in 2014 - allegedly allergic to lipitor and plavix - HELD home ASA 81mg daily while pre op Bladder cancer - followed by urology as of 2015 with cystoscopy with fulguration for bladder tumor 2014 Dementia -stable, reorientation Depression -cont PO sertraline FEN/GI: LR running at 80ml/hr while NPO. DVT ppx: SCDs. Chem anticoag contraindicated while possibly pre-op CODE STATUS: FULL DISPO: Tele to monitor afib. Spoke with pt's daughter and POA Nusrat Gilmore ) and updated her re: plan for surgery and need for consent forms signed given pt does not have capacity. She will be in later today 10am. (2) Atrial fibrillation: (3) Fall: (4) DVT prophylaxis: (5) Depression: (6) Dementia: Supervising Physician Co-Signing Physician Notes I personally examined the patient and verified all bryant points of history and exam, discussed case, and agree with decision making with Dr Fernandez. No meaningful HPI or review of systems obtainable from patient. Family present , and we discussed the case in depth. I answer all questions to the best my ability, and to their satisfaction. Vitals noted, in general he is disoriented but appears to be in no distress. HEENT normal cephalic atraumatic mucous membranes are moist. Lungs unlabored no accessory muscle use good effort. Skin shows no rashes pallor or icterus Hip fracturefor repair today, PT/OT eval and treat, likely will need SNF placement. Vitamin D pending, consider DEXA as an outpatient. DVT prophylaxispostop per orthopedics, he had a one-time dose of heparin subcu yesterday. Dementia with agitationpain control, supportive care, supervision, and redirection when possible. Atrial fibrillationrate is controlled, he apparently declined anticoagulation whenever he had the ability to make informed decisions, based on prior documentation. Subjective No acute events overnight per nursing. Tolerated PO meds this AM. Otherwise NPO in anticipation for orthopedic surgery on right hip later today at 13:00. Spoke with pt's daughter and POYolanda Gilmore ([phone]) and updated her re: plan for surgery and need for consent forms signed given pt does not have capacity. She will be in later today 10am. Informed nursing. Review of Systems Unobtainable due to mental health condition Physical Exam 2 Vital Signs (Past 24 Hours): Last Vital Signs Temp 36.5 C 03/28/18 06:53 Pulse 114 H 03/28/18 06:53 Resp 16 03/28/18 06:53 BP 110/69 03/28/18 06:53 Pulse Ox 95 03/28/18 06:53 Physical Exam: Vitals noted as above. Atrial fibrillation on telemetry, rate < 100. GENERAL: Awake, oriented to person but not to time or place. Well-appearing, in no distress HENT: Normocephalic, atraumatic. EYES: Normal conjunctiva. Sclera non-icteric. NECK: Supple. Full range of motion. no JVD RESPIRATORY: Clear to auscultation. CARDIAC: Irreg/irreg, rate <100. Extremities warm and well perfused. Pulses equal. ABDOMEN: Soft, non-distended. No tenderness to palpation. No rebound or guarding. No masses. LOWER EXTREMITIES: Calves are equal size bilaterally and non-tender. No edema. No discoloration. MSK: RLE is externally rotated, neurovascularly in tact. Mild TTP at right hip. NEURO: No gross focal motor deficits noted, CN II-XII in tact. SKIN: No rash or jaundice noted. No visible bruising. Results & Data Laboratory Results 03/28/18 03/28/18 03/28/18 Range/Units 07:24 07:24 07:24 WBC 7.67 (4.8-10.8) K/uL RBC 4.66 L (4.7-6.1) M/uL Hgb 14.2 (14.0-18.0) g/dL Hct 41.7 L (42-52) % MCV 89.5 (80-100) fL MCH 30.5 (25-34) pg MCHC 34.1 (32-36) g/dL RDW Std Deviation 41.9 (36.4-46.3) fL RDW Coeff of Jack 12.9 (11.5-14.5) % Plt Count 140 (130-400) K/uL MPV 9.6 (7.4-10.4) fL Immature Gran % (Auto) 0.1 % Neut % (Auto) 77.2 % Lymph % (Auto) 12.1 % [place] % (Auto) 10.0 % Eos % (Auto) 0.5 % Baso % (Auto) 0.1 % Immature Gran # (Auto) 0.01 (0.00-0.02) K/uL Neut # (Auto) 5.91 (1.4-6.5) K/uL Lymph # (Auto) 0.93 L (1.2-3.4) K/uL [place] # (Auto) 0.77 H (0.11-0.59) K/uL Eos # (Auto) 0.04 (0-0.5) K/uL Baso # (Auto) 0.01 (0-0.2) K/uL Sodium 138 (136-145) mmol/L Potassium 4.0 (3.5-5.1) mmol/L Chloride 103 (98-107) mmol/L Carbon Dioxide 27 (21-32) mmol/L Anion Gap 8.0 (3-11) BUN 20 H (7-18) mg/dl Creatinine 0.90 (0.6-1.4) mg/dl Est Cr Clr Drug Dosing 58.6 ml/min Est GFR ( Amer) 88.1 Est GFR (Non-Af Amer) 76.0 BUN/Creatinine Ratio 22.7 H (10-20) Glucose 92 (70-99) mg/dl Calcium 8.8 (8.5-10.1) mg/dl 25-OH Vitamin D Total 20.7 L (30-100) ng/ml Urine Color Urine Appearance (Clear) Urine pH (4.5-7.5) Ur Specific [place] (1.000-1.030) Urine Protein (Negative) Urine Glucose (UA) (Negative) Urine Ketones (Negative) Urine Blood (Negative) Urine Nitrite (Negative) Urine Bilirubin (Negative) Urine Urobilinogen (Negative) Ur Leukocyte Esterase (Negative) Urine WBC (Auto) (0-5) /hpf Urine RBC (Auto) (0-4) /hpf U Hyaline Cast (Auto) (0-5) /lpf U Epithel Cells (Auto) (0-5) /lpf Urine Bacteria (Auto) (Negative) Nasal Screen MRSA (PCR) (Negative) Blood Type Antibody Screen 03/27/18 03/27/18 03/27/18 Range/Units 11:45 09:55 08:38 WBC (4.8-10.8) K/uL RBC (4.7-6.1) M/uL Hgb (14.0-18.0) g/dL Hct (42-52) % MCV (80-100) fL MCH (25-34) pg MCHC (32-36) g/dL RDW Std Deviation (36.4-46.3) fL RDW Coeff of Jack (11.5-14.5) % Plt Count (130-400) K/uL MPV (7.4-10.4) fL Immature Gran % (Auto) % Neut % (Auto) % Lymph % (Auto) % [place] % (Auto) % Eos % (Auto) % Baso % (Auto) % Immature Gran # (Auto) (0.00-0.02) K/uL Neut # (Auto) (1.4-6.5) K/uL Lymph # (Auto) (1.2-3.4) K/uL [place] # (Auto) (0.11-0.59) K/uL Eos # (Auto) (0-0.5) K/uL Baso # (Auto) (0-0.2) K/uL Sodium (136-145) mmol/L Potassium (3.5-5.1) mmol/L Chloride (98-107) mmol/L Carbon Dioxide (21-32) mmol/L Anion Gap (3-11) BUN (7-18) mg/dl Creatinine (0.6-1.4) mg/dl Est Cr Clr Drug Dosing ml/min Est GFR ( Amer) Est GFR (Non-Af Amer) BUN/Creatinine Ratio (10-20) Glucose (70-99) mg/dl Calcium (8.5-10.1) mg/dl 25-OH Vitamin D Total (30-100) ng/ml Urine Color Saline Urine Appearance Clear (Clear) Urine pH 5.5 (4.5-7.5) Ur Specific [place] 1.025 (1.000-1.030) Urine Protein Negative (Negative) Urine Glucose (UA) Negative (Negative) Urine Ketones Trace H (Negative) Urine Blood 1+ H (Negative) Urine Nitrite Negative (Negative) Urine Bilirubin Negative (Negative) Urine Urobilinogen Negative (Negative) Ur Leukocyte Esterase Negative (Negative) Urine WBC (Auto) 0 (0-5) /hpf Urine RBC (Auto) 10-30 H (0-4) /hpf U Hyaline Cast (Auto) 0 (0-5) /lpf U Epithel Cells (Auto) 10-20 H (0-5) /lpf Urine Bacteria (Auto) Negative (Negative) Nasal Screen MRSA (PCR) Negative (Negative) Blood Type O Positive Antibody Screen NEGATIVE Diagnostic Findings 03/28/18 TTE pending Medications Administered Current Inpatient Medications Acetaminophen (Tylenol) 650 mg PO Q6H PRN PRN Reason: mild pain (scale 1-3) Stop: 04/26/18 11:40 Acetaminophen (Tylenol) 650 mg PO QID [facility] Stop: 04/26/18 18:06 Last Admin: 03/27/18 18:28 Dose: Not Given Bisacodyl (Dulcolax) 10 mg SD DAILY PRN PRN Reason: Constipation Stop: 04/26/18 11:40 Lactated Ringer's (Lr) 1,000 mls @ 80 mls/hr IV .[id number] [facility] Stop: 04/26/18 11:40 Last Admin: 03/27/18 23:41 Dose: 80 mls/hr Cefazolin Sodium (Ancef 2000mg) 2,000 mg in 15 mls @ 3.75 mls/min IV PREOP [facility] ; Protocol Stop: 03/29/18 05:59 Lorazepam (Ativan) 0.5 mg in 1 mls @ 1 mls/min IV Q4H PRN PRN Reason: Anxiety Stop: 04/26/18 13:20 Last Admin: 03/28/18 00:12 Dose: 1 mls/min Acetaminophen (Ofirmev) 65 mls @ 260 mls/hr IV Q6H [facility] Stop: 03/29/18 19:59 Last Infusion: 03/28/18 06:07 Dose: Infused Ketorolac Tromethamine (Toradol) 15 mg IV Q6H PRN PRN Reason: Pain Stop: 04/01/18 15:55 Magnesium Hydroxide (Milk Of Magnesia) 30 ml PO DAILY PRN PRN Reason: Constipation Stop: 04/26/18 11:40 Metoprolol Succinate (Toprol Xl) [address] [facility] Stop: 04/27/18 08:59 Last Admin: 03/28/18 07:46 Dose: 50 mg Metoprolol Tartrate (Lopressor) 5 mg IV Q15M PRN PRN Reason: Tachycardia >120 Stop: 04/27/18 01:27 Last Admin: 03/28/18 01:47 Dose: 5 mg Morphine Sulfate (Morphine Sulfate) 2 mg IV Q2H PRN PRN Reason: moderate pain (scale 4-6) Stop: 04/10/18 11:40 Last Admin: 03/28/18 07:47 Dose: 2 mg Naloxone HCl (Narcan) 0.1 mg IV UD PRN PRN Reason: opiate overdose Stop: 04/26/18 11:40 Ondansetron HCl (Zofran) 4 mg IV Q6H PRN PRN Reason: Nausea And Vomiting Stop: 04/26/18 11:40 Senna/Docusate Sodium (Senokot S) 2 tab PO [facility] Stop: 04/26/18 20:59 Last Admin: 03/27/18 21:29 Dose: Not Given Sertraline HCl (Zoloft) [address] [facility] Stop: 04/27/18 08:59 Last Admin: 03/28/18 07:46 Dose: 25 mg Sodium Biphosphate/Sodium Phosphate (Fleet Enema) 132 ml SD DAILY PRN PRN Reason: Constipation Stop: 04/26/18 11:40 ECG Rhythm: atrial fibrillation Comparison ECG Date: from (03/27/18) Change: no significant change Resident Activity Tracking Resident Involvement: Resident Care Provided Care Provided: [facility] Medicine _ (1) Atrial fibrillation Atrial fibrillation type: unspecified Qualified Code(s): I48.91 - Unspecified atrial fibrillation (2) Fall Encounter type: initial encounter Qualified Code(s): W19.XXXA - Unspecified fall, initial encounter (3) Closed fracture of right hip Encounter type: initial encounter Fracture healing: Qualified Code(s): S72.001A - Fracture of unspecified part of neck of right femur, initial encounter for closed fracture
[2018-03-28] MEDS ORDERED: BUPIVACAINE 0.5 % 5 MG/1 ML PF 10ML VIAL ONE (07:37)
[2018-03-28 07:39] LABS: Basophils # (auto) 0.01 K/uL (0-0.2); Basophils % (auto) 0.1 %; Eosinophils # (auto) 0.04 K/uL (0-0.5); Eosinophils % (auto) 0.5 %; Hematocrit (blood only) 41.7 % (42-52); Hemoglobin 14.2 g/dL (14.0-18.0); Immature Granulocytes # (auto) 0.01 K/uL (0.00-0.02); Immature Granulocytes % (auto) 0.1 %; Lymphocytes # (auto) 0.93 K/uL (1.2-3.4); Lymphocytes % (auto) 12.1 %; Mean Corpuscular Hgb Conc 34.1 g/dL (32-36); Mean Corpuscular Volume 89.5 fL (80-100); Mean Platelet Volume 9.6 fL (7.4-10.4); Monocytes # (auto) 0.77 K/uL (0.11-0.59); Neutrophils # (auto) 5.91 K/uL (1.4-6.5); Neutrophils % (auto) 77.2 %; Platelet Count 140 K/uL (130-400); RDW Coefficient of Variation 12.9 % (11.5-14.5); RDW Standard Deviation 41.9 fL (36.4-46.3); Red Blood Count 4.66 M/uL (4.7-6.1); White Blood Count 7.67 K/uL (4.8-10.8)
[2018-03-28] MEDS: SERTRALINE HCL 50 MG TABLET PO SCH (07:46)
[2018-03-28] MEDS: MoRPHine SULFATE 2 MG/ML CARP IV PRN ×2 (07:47→10:03)
[2018-03-28 08:04] LABS: BUN Creatinine Ratio 22.7 (10-20); Calcium 8.8 mg/dl (8.5-10.1); Creatinine Clr Calc Pharmacy 58.6 ml/min; Est GFR (African American) 88.1
[2018-03-28] MEDS ORDERED: METOPROLOL SUCC 50MG EXT REL TAB PO SCH (09:00)
[2018-03-28] MEDS: LACTATED RINGER'S 1,000 ML IV SCH (12:22)
[2018-03-28] MEDS: ACETAMINOPHEN 325 MG TAB PO SCH (12:23)
--- NOTE | 2018-03-28 12:30 | Orthopedic Consultation ---
Date of Consultation March 28, 2018 Assessment & Plan (1) Closed fracture of right hip: He has been npo for planned surgery today on right hip, specifically cemented bipolar hemiarthroplasty with Dr. Seals. His daughter apparently just left and did not answer when i called her. I will try again in order to update her and obtain consent. History of Present Illness Reason for Consultation: Right hip fx Attending Physician: Rafael Zhang DO History of Present Illness Mr. Pino is a 88 y/o male with advanced dementia. He was asleep at the time I saw him and I was not able to awake him. History obtained from chart, H & P, Nurse, and Aid that are present. He sustained a fall at home, was brought to the ER and found to have a right femoral neck fx. Complete history reviewed and please refer to H &P. Allergies Allergy/AdvReac Type Severity Reaction Status Date / Time atorvastatin [From Lipitor] Allergy Unverified 03/27/18 11:16 clopidogrel [From Plavix] Allergy Unverified 03/27/18 11:16 sulfamethoxazole Allergy Unverified 03/27/18 11:16 [From Bactrim] trimethoprim [From Bactrim] Allergy Unverified 03/27/18 11:16 Home Medications Home Medications Medication Instructions Recorded Confirmed Type acetaminophen [Tylenol Extra 500 mg PO UD PRN 03/27/18 03/27/18 History Strength] aspirin [Aspirin Low Dose] 81 mg PO DAILY 03/27/18 03/27/18 History metoprolol succinate [Toprol XL] 50 mg PO DAILY 03/27/18 03/27/18 History sertraline 25 mg PO QAM 03/27/18 03/27/18 History Patient History Medical History Bladder cancer CAD (coronary artery disease) Dementia Paroxysmal atrial fibrillation Surgical History Hx of transurethral destruction of bladder lesion Stented coronary artery Family History Other Family history non-contributory Social History marital status: / Current Living Situation: Family Current Living Situation Comment: reports living alone, unable to determine current occupational status: retired Feels Safe at Home: Yes Smoking Status: Unknown if ever smoked Hx Substance Use: No (unknown) Beliefs That Will Affect Care: None Preferred Language: Tajik Communication Ability: Impaired Pick Pulling Machine Tender Required: No Physical Exam 2 Vital Signs (Past 24 Hours): Last Vital Signs Temp 36.7 C 03/28/18 12:00 Pulse 104 H 03/28/18 12:00 Resp 16 03/28/18 12:00 BP 112/77 03/28/18 12:00 Pulse Ox 96 03/28/18 12:00 Musculoskeletal: He is asleep and I was not able to wake him. He had just fallen asleep per nursing. His right leg is shortened and externally rotated some. Skin appears intact around right hip. Results & Data Diagnostic Findings xrays show a displaced femoral neck fx of right hip _ (1) Closed fracture of right hip Encounter type: initial encounter Fracture healing: Qualified Code(s): S72.001A - Fracture of unspecified part of neck of right femur, initial encounter for closed fracture
--- NOTE | 2018-03-28 14:25 | Orthopedic Progress Note ---
Date of Service March 28, 2018 Assessment & Plan (1) Closed fracture of right hip: Continue npo. His daughter was not available still. We contacted his son Hu on the phone for consent to proceed with surgery. Procedure explained including risk and benefits of surgery. He gave consent to proceed. Subjective Hu was seen again today. Awake and alert this time. Confused. Denies pain. Physical Exam 2 Vital Signs (Past 24 Hours): Last Vital Signs Temp 36.7 C 03/28/18 12:00 Pulse 104 H 03/28/18 12:00 Resp 16 03/28/18 12:00 BP 112/77 03/28/18 12:00 Pulse Ox 96 03/28/18 12:00 Musculoskeletal: Awake, alert, confused. NAD. _ (1) Closed fracture of right hip Encounter type: initial encounter Fracture healing: Qualified Code(s): S72.001A - Fracture of unspecified part of neck of right femur, initial encounter for closed fracture
[2018-03-28] MEDS ORDERED: fentaNYL citrate 100 MCG/2 ML VIAL IV PRN (16:41)
[2018-03-28] MEDS ORDERED: DEXAMETHASONE SOD INJ 4 MG/ML VIAL IV PRN (16:41)
[2018-03-28] MEDS ORDERED: HYDROmorphone INJ 1 MG/ML SYRINGE IV PRN (16:41)
[2018-03-28] MEDS ORDERED: ePHEDrine sulfate 50 MG/ML AMP IV PRN (16:41)
[2018-03-28] MEDS ORDERED: ATROPINE SULFATE 0.1 MG/ML 5ML SYR IV PRN (16:41)
[2018-03-28] MEDS ORDERED: METOCLOPRAMIDE HCL INJ 5 MG/ML 2 ML VIAL IV PRN (16:41)
[2018-03-28] MEDS ORDERED: BACITRACIN INJ 50,000 UNIT VIAL ONE (16:47)
[2018-03-28] MEDS ORDERED: BUPIVACAINE/EPINEPHRINE 0.5% MPF 1:200,000 30 ML VIAL ONE (16:47)
[2018-03-28] MEDS ORDERED: fentaNYL citrate 100 MCG/2 ML VIAL ONE (16:55)
[2018-03-28] MEDS ORDERED: PROPOFOL IV EMULSION 10 MG/ML 20 ML VIAL IV ONE (17:31)
[2018-03-28] MEDS ORDERED: LIDOCAINE HCL 2% 2 ML VIAL/AMP(20MG/ML) INFIL ONE (17:31)
[2018-03-28] MEDS ORDERED: GLYCOPYRROLATE 0.2 MG/ML VIAL ONE (17:31)
[2018-03-28] MEDS ORDERED: PHENYLEPHRINE 100MCG/ML 5ML SYR ONE (17:31)
[2018-03-28] MEDS ORDERED: ROCURONIUM BROMIDE 10 MG/ML 5 ML VIAL ONE (17:31)
[2018-03-28] MEDS ORDERED: ONDANSETRON INJ 2 MG/ML 2 ML VIAL ONE (17:31)
[2018-03-28] MEDS ORDERED: DEXAMETHASONE SOD INJ 4 MG/ML VIAL ONE (17:31)
[2018-03-28] MEDS ORDERED: NEOSTIGMINE METHYLSULFATE 5 MG/5 ML SYR ONE (17:31)
[2018-03-28] MEDS: THROMBIN FOR SOLN 20000 UNIT KIT ONE (18:28)
--- NOTE | 2018-03-28 18:48 | Post Operative Brief Note ---
Immediate Post Op Note v1 Date of Surgery March 28, 2018 Pre & Post Diagnosis Operation Date: 03/28/18 14:30 Pre-Op Diagnosis: Right Hip Fracture Post-Op Diagnosis: Right Hip Fracture Procedure Operation Date: 03/28/18 14:30 Actual Procedures p Right Cemented Bipolar Hemiarthroplasty(Right) - Josemanuel Seals MD Surgeon Josemanuel Seals MD Reprint Sorter Katarzyna, PAC Estimated Blood Loss 200 Findings Consistent with Post-Op Diagnosis Fluids 800 cc Specimens Right Femoral Head Drains Roldan Catheter (present upon arrival to OR) Anesthesia Type General Complications none Disposition Accompanied Patient To Recovery: No Disposition: Recovery Room
--- NOTE | 2018-03-28 19:37 | XRay Report ---
XR hip RT min 2V CLINICAL HISTORY: 88 years-old Male presenting with Post-Operative implant position. TECHNIQUE: Frontal and crosstable lateral views of the right hip were obtained. COMPARISON: 03/27/2018. FINDINGS: There has been interval total right hip arthroplasty. Expected intra-articular and soft tissue emphys reagan. Overlying skin eileen noted. No malalignment. No periprosthetic fracture. IMPRESSION: Expected postsurgical appearance status post total right hip arthroplasty. Electronically signed by: Brian Urbina M.D. 03/28/2018 7:36 PM
--- NOTE | 2018-03-28 20:49 | Anesthesiology Progress Note ---
Date of Service March 28, 2018 Anesthesia Post Procedure Vital Signs Vital Signs: Temp Pulse Pulse Pulse Resp BP BP 03/28/18 20:36 87 26 H 122/67 03/28/18 20:35 100 H 18 03/28/18 20:30 87 15 130/87 03/28/18 20:26 95 H 18 131/79 03/28/18 20:25 87 16 03/28/18 20:21 86 17 139/88 03/28/18 20:20 89 13 03/28/18 20:16 90 13 129/81 03/28/18 20:15 90 16 03/28/18 20:11 90 21 135/76 03/28/18 20:10 96 H 19 03/28/18 20:06 92 H 20 138/88 03/28/18 20:05 86 17 03/28/18 20:00 92 H 17 132/77 03/28/18 19:55 80 23 140/75 03/28/18 19:50 95 H 18 135/98 03/28/18 19:45 84 21 137/88 03/28/18 19:42 92 H 14 117/60 03/28/18 19:40 91 H 19 03/28/18 19:35 91 H 20 140/81 03/28/18 19:31 91 H 127/76 03/28/18 19:30 97 H 03/28/18 19:27 91 H 03/28/18 19:26 93 H 138/94 03/28/18 19:25 94 H 03/28/18 19:20 101 H 141/83 H 03/28/18 19:15 84 137/84 03/28/18 19:10 93 H 16 128/88 03/28/18 19:06 94 H 14 132/88 03/28/18 19:05 90 15 03/28/18 19:01 90 15 132/74 03/28/18 19:00 81 16 03/28/18 18:55 82 19 138/86 03/28/18 18:51 90 14 145/73 H 03/28/18 18:50 37.0 C 83 16 145/73 H 03/28/18 15:15 36.4 C L 95 H 16 109/67 03/28/18 12:00 36.7 C 104 H 16 03/28/18 06:53 36.5 C 114 H 16 110/69 03/28/18 02:43 36.9 C 99 H 21 03/28/18 01:47 135 H 118/78 03/28/18 00:00 104 H 03/27/18 22:44 36.8 C 116 H 18 BP Pulse Ox 03/28/18 20:36 94 03/28/18 20:35 97 03/28/18 20:30 97 03/28/18 20:26 98 03/28/18 20:25 98 03/28/18 20:21 94 03/28/18 20:20 96 03/28/18 20:16 97 03/28/18 20:15 98 03/28/18 20:11 98 03/28/18 20:10 95 03/28/18 20:06 94 03/28/18 20:05 96 03/28/18 20:00 96 03/28/18 19:55 96 03/28/18 19:50 97 03/28/18 19:45 97 03/28/18 19:42 98 03/28/18 19:40 96 03/28/18 19:35 97 03/28/18 19:31 97 03/28/18 19:30 97 03/28/18 19:27 96 03/28/18 19:26 95 03/28/18 19:25 95 03/28/18 19:20 100 03/28/18 19:15 98 03/28/18 19:10 99 03/28/18 19:06 96 03/28/18 19:05 94 03/28/18 19:01 97 03/28/18 19:00 97 03/28/18 18:55 99 03/28/18 18:51 98 03/28/18 18:50 98 03/28/18 15:15 96 03/28/18 12:00 112/77 96 03/28/18 06:53 95 03/28/18 02:43 126/87 94 03/28/18 01:47 03/28/18 00:00 03/27/18 22:44 116/78 94 Pain Intensity Right Hip: Pain Intensity: 0 Notes Mental Status: alert / awake / arousable and participated in evaluation Patient Amnestic to Procedure: Yes Nausea / Vomiting: adequately controlled Pain: adequately controlled Airway Patency, RR, SpO2: stable & adequate BP & HR: stable & adequate Hydration State: stable & adequate Anesthetic Complications: no major complications apparent
[2018-03-28] MEDS ORDERED: COUGH DROP (SUGAR FREE) LOZ 24 LOZ/1 BOX BUCCAL PRN (20:59)
[2018-03-28] MEDS ORDERED: BISACODYL 10 MG SUPP PR PRN (20:59)
[2018-03-28] MEDS ORDERED: HYDROmorphone INJ 0.5 MG/0.5 ML SYR IV PRN (20:59)
[2018-03-28] MEDS ORDERED: ONDANSETRON INJ 2 MG/ML 2 ML VIAL IV PRN (20:59)
[2018-03-28] MEDS ORDERED: NALOXONE HCL 0.4 MG/1 ML VIAL/CARP IV PRN (20:59)
[2018-03-28] MEDS ORDERED: MAGNESIUM HYDROXIDE SUSP 30 ML UDC PO PRN (20:59)
[2018-03-28] MEDS: SENNA 8.6 MG TAB PO SCH (22:48)
[2018-03-28] MEDS: ASPIRIN 81 MG ECTAB PO SCH (22:48)
[2018-03-28] MEDS: DOCUSATE SODIUM/SENNA 50/8.6MG TAB PO SCH (22:48)
[2018-03-29] MEDS: CEFAZOLIN 2000MG 2,000 MG/15 ML SYR IV SCH ×2 (00:40→07:38)
[2018-03-29] MEDS: LORazepam 0.5 MG/1 ML VIAL IV PRN ×2 (03:21→07:30)
[2018-03-29] MEDS: LACTATED RINGER'S 1,000 ML IV SCH (03:22)
[2018-03-29 06:06] LABS: Hematocrit (blood only) 42.8 % (42-52); Hemoglobin 14.2 g/dL (14.0-18.0); Immature Granulocytes # (auto) 0.02 K/uL (0.00-0.02); Immature Granulocytes % (auto) 0.2 %; Lymphocytes # (auto) 0.64 K/uL (1.2-3.4); Lymphocytes % (auto) 6.7 %; Mean Corpuscular Hgb Conc 33.2 g/dL (32-36); Mean Corpuscular Volume 89.2 fL (80-100); Mean Platelet Volume 9.9 fL (7.4-10.4); Monocytes # (auto) 0.95 K/uL (0.11-0.59); Neutrophils % (auto) 83.1 %; Platelet Count 150 K/uL (130-400); RDW Coefficient of Variation 12.8 % (11.5-14.5); RDW Standard Deviation 41.6 fL (36.4-46.3); White Blood Count 9.51 K/uL (4.8-10.8)
[2018-03-29 06:34] LABS: BUN Creatinine Ratio 27.7 (10-20); Calcium 8.6 mg/dl (8.5-10.1); Creatinine Clr Calc Pharmacy 72.2 ml/min; Est GFR (Non-African American) 82.8; Potassium 4.4 mmol/L (3.5-5.1)
[2018-03-29] MEDS: THROMBIN FOR SOLN 20000 UNIT KIT ONE (07:28)
[2018-03-29] MEDS: ACETAMINOPHEN 325 MG TAB PO SCH ×6 (07:29→22:08)
[2018-03-29] MEDS: METOPROLOL SUCC 50MG EXT REL TAB PO SCH (07:32)
[2018-03-29] MEDS: ASPIRIN 81 MG ECTAB PO SCH ×2 (07:32→17:50)
[2018-03-29] MEDS: SERTRALINE HCL 50 MG TABLET PO SCH (07:33)
--- NOTE | 2018-03-29 09:18 | Family Medicine Progress Note ---
Date of Service March 29, 2018 Assessment & Plan (1) Closed fracture of right hip: 88M here for mechanical fall while at home 03/26, brought to ED by son with whom he lives, due to limited mobility and pain. Found to have closed right hip fracture on XR. Closed fracture of right hip, s/p hip arthroplasty POD 1 - as seen on XR - Hypovitaminosis D -- vit d level at 20 - continue tylenol scheduled PO - dilaudid PRN for mod/severe pain, caution in light of dementia - SCDs - PT/OT to SNF - add vit D daily, + 50,000 units weekly, to be continued on discharge-- to recheck vit d level in 3 months. Ongoing medical issues: Paroxysmal Atrial fibrillation, known - per outpt record has refused coumadin "adamantly" in the outpatient setting due to previous episode of genitourinary bleeding. -TTE unremarkable -last TSH from Nov 2016 1.85. -continue home Toprol XL 50mg daily CAD - RCA stent in 2014 - allegedly allergic to lipitor and plavix - Restart home ASA 81mg daily now that post op Bladder cancer - followed by urology as of 2015 with cystoscopy with fulguration for bladder tumor 2014 Dementia -stable, reorientation Depression -cont PO sertraline FEN/GI: Regular diet. DVT ppx: SCDs. Heparin. CODE STATUS: FULL DISPO: Med surg. To SNF for rehab -- Spoke with pt's daughter and POA Nusrat Gilmore ([phone]) and she and family are in favor of SNF for rehab. Left VM for CM to that effect today at 17:30. (2) Atrial fibrillation: (3) Fall: (4) DVT prophylaxis: (5) Depression: (6) Dementia: Supervising Physician Co-Signing Physician Notes I personally examined the patient and verified all bryant points of history and exam, discussed case, and agree with decision making with Dr Fernandez. No meaningful HPI or review of systems obtainable from patient. Vitals noted, in general he is disoriented but appears to be in no distress. HEENT normal cephalic atraumatic mucous membranes are moist. Lungs unlabored no accessory muscle use good effort. Skin shows no rashes pallor or icterus. Does have blood at the meatus from where he pulled his Roldan Hip fracturepost repair, PT/OT eval and treat, likely to need SNF. Vitamin D deficiencyreplaced, strongly consider DEXA as an outpatient DVT prophylaxispostop per orthopedics Dementia with agitationpain control, supportive care, supervision, and redirection when possible. Hopefully we can DC Yuli today. Apparently family is thinking about taking him home because of this instead of looking at a facility, we will have to be sure that they understand his very severe physical limitations right now. Atrial fibrillationrate is controlled, he apparently declined anticoagulation whenever he had the ability to make informed decisions, based on prior documentation. Transient tachycardia and hypotensionhe has been asymptomatic, nursing is watching this closely, Dr. Fernandez is evaluating, otherwise as above. Subjective No acute events overnight. S/p hip arthroplasty. Tolerating po. PT/OT recommend skilled for rehab. Spoke at length with family and POA and they say (later this afternoon) that after much thought they are in favor of [facility] for rehab, first choice being [facility]. Called and LM for CM to that effect. Saw in afternoon that pt had lower BP than he has been -- assessed pt at bedside , and looked well. Review of Systems Unobtainable due to cognitive status Physical Exam 2 Vital Signs (Past 24 Hours): Last Vital Signs Temp 36.8 C 03/29/18 07:20 Pulse 110 H 03/29/18 07:20 Resp 22 03/29/18 07:20 BP 136/80 03/29/18 07:20 Pulse Ox 94 03/29/18 07:20 Physical Exam: Vitals noted and reviewed, as above GENERAL: no acute distress HEAD: normocephalic atraumatic ENT: sclerae normal, trachea midline RESP: normal work of breathing CV: irreg/irreg on monitor. Extremities well perfused. ABDOMEN: nondistended SKIN: no rashes or jaundice PSYCH: appropriate mood and affect NEURO: Dementia. Results & Data Laboratory Results 03/29/18 03/29/18 Range/Units 05:56 05:56 WBC 9.51 (4.8-10.8) K/uL RBC 4.80 (4.7-6.1) M/uL Hgb 14.2 (14.0-18.0) g/dL Hct 42.8 (42-52) % MCV 89.2 (80-100) fL MCH 29.6 (25-34) pg MCHC 33.2 (32-36) g/dL RDW Std Deviation 41.6 (36.4-46.3) fL RDW Coeff of Jack 12.8 (11.5-14.5) % Plt Count 150 (130-400) K/uL MPV 9.9 (7.4-10.4) fL Immature Gran % (Auto) 0.2 % Neut % (Auto) 83.1 % Lymph % (Auto) 6.7 % [place] % (Auto) 10.0 % Eos % (Auto) 0.0 % Baso % (Auto) 0.0 % Immature Gran # (Auto) 0.02 (0.00-0.02) K/uL Neut # (Auto) 7.90 H (1.4-6.5) K/uL Lymph # (Auto) 0.64 L (1.2-3.4) K/uL [place] # (Auto) 0.95 H (0.11-0.59) K/uL Eos # (Auto) 0.00 (0-0.5) K/uL Baso # (Auto) 0.00 (0-0.2) K/uL Sodium 138 (136-145) mmol/L Potassium 4.4 (3.5-5.1) mmol/L Chloride 102 (98-107) mmol/L Carbon Dioxide 28 (21-32) mmol/L Anion Gap 8.0 (3-11) BUN 20 H (7-18) mg/dl Creatinine 0.73 (0.6-1.4) mg/dl Est Cr Clr Drug Dosing 72.2 ml/min Est GFR ( Amer) 96.0 Est GFR (Non-Af Amer) 82.8 BUN/Creatinine Ratio 27.7 H (10-20) Glucose 112 H (70-99) mg/dl Calcium 8.6 (8.5-10.1) mg/dl Resident Activity Tracking Resident Involvement: Resident Care Provided Care Provided: [facility] Medicine _ (1) Atrial fibrillation Atrial fibrillation type: unspecified Qualified Code(s): I48.91 - Unspecified atrial fibrillation (2) Fall Encounter type: initial encounter Qualified Code(s): W19.XXXA - Unspecified fall, initial encounter (3) Closed fracture of right hip Encounter type: initial encounter Fracture healing: Qualified Code(s): S72.001A - Fracture of unspecified part of neck of right femur, initial encounter for closed fracture
[2018-03-29] MEDS: CHOLECALCIFEROL 1,000 UNITS TAB PO SCH (09:49)
--- NOTE | 2018-03-29 10:42 | Anesthesiology Progress Note ---
Date of Service March 29, 2018 Anesthesia Post Procedure Vital Signs Vital Signs: Temp Pulse Pulse Resp BP BP BP 03/29/18 07:20 36.8 C 110 H 22 136/80 03/29/18 03:07 36.6 C 101 H 16 119/79 03/29/18 00:00 16 139/78 03/28/18 22:53 36.9 C 85 16 137/86 03/28/18 21:00 36.8 C 101 H 16 148/98 H 03/28/18 20:36 87 26 H 122/67 03/28/18 20:35 100 H 18 03/28/18 20:30 87 15 130/87 03/28/18 20:26 95 H 18 131/79 03/28/18 20:25 87 16 03/28/18 20:21 86 17 139/88 03/28/18 20:20 89 13 03/28/18 20:16 90 13 129/81 03/28/18 20:15 90 16 03/28/18 20:11 90 21 135/76 03/28/18 20:10 96 H 19 03/28/18 20:06 92 H 20 138/88 03/28/18 20:05 86 17 03/28/18 20:00 92 H 17 132/77 03/28/18 19:55 80 23 140/75 03/28/18 19:50 95 H 18 135/98 03/28/18 19:45 84 21 137/88 03/28/18 19:42 92 H 14 117/60 03/28/18 19:40 91 H 19 03/28/18 19:35 91 H 20 140/81 03/28/18 19:31 91 H 127/76 03/28/18 19:30 97 H 03/28/18 19:27 91 H 03/28/18 19:26 93 H 138/94 03/28/18 19:25 94 H 03/28/18 19:20 101 H 141/83 H 03/28/18 19:15 84 137/84 03/28/18 19:10 93 H 16 128/88 03/28/18 19:06 94 H 14 132/88 03/28/18 19:05 90 15 03/28/18 19:01 90 15 132/74 03/28/18 19:00 81 16 03/28/18 18:55 82 19 138/86 03/28/18 18:51 90 14 145/73 H 03/28/18 18:50 37.0 C 83 16 145/73 H 03/28/18 15:15 36.4 C L 95 H 16 109/67 03/28/18 12:00 36.7 C 104 H 16 112/77 Pulse Ox 03/29/18 07:20 94 03/29/18 03:07 99 03/29/18 00:00 99 03/28/18 22:53 98 03/28/18 21:00 96 03/28/18 20:36 94 03/28/18 20:35 97 03/28/18 20:30 97 03/28/18 20:26 98 03/28/18 20:25 98 03/28/18 20:21 94 03/28/18 20:20 96 03/28/18 20:16 97 03/28/18 20:15 98 03/28/18 20:11 98 03/28/18 20:10 95 03/28/18 20:06 94 03/28/18 20:05 96 03/28/18 20:00 96 03/28/18 19:55 96 03/28/18 19:50 97 03/28/18 19:45 97 03/28/18 19:42 98 03/28/18 19:40 96 03/28/18 19:35 97 03/28/18 19:31 97 03/28/18 19:30 97 03/28/18 19:27 96 03/28/18 19:26 95 03/28/18 19:25 95 03/28/18 19:20 100 03/28/18 19:15 98 03/28/18 19:10 99 03/28/18 19:06 96 03/28/18 19:05 94 03/28/18 19:01 97 03/28/18 19:00 97 03/28/18 18:55 99 03/28/18 18:51 98 03/28/18 18:50 98 03/28/18 15:15 96 03/28/18 12:00 96 Pain Intensity Right Hip: Pain Intensity: 0 Notes Mental Status: alert / awake / arousable and participated in evaluation Patient Amnestic to Procedure: Yes Nausea / Vomiting: adequately controlled Pain: adequately controlled Airway Patency, RR, SpO2: stable & adequate BP & HR: stable & adequate Hydration State: stable & adequate Anesthetic Complications: no major complications apparent and Pt Satisfied with anesthetic care
--- NOTE | 2018-03-29 10:49 | Operative Report ---
DATE OF OPERATION: 03/28/2018 SURGEON: Josemanuel Seals MD SENIOR MATERIALS ANALYST: CRISSY Shaikh PREOPERATIVE DIAGNOSIS: Right displaced femoral neck fracture. POSTOPERATIVE DIAGNOSIS: Right displaced femoral neck fracture. PROCEDURE PERFORMED: Right cemented bipolar hip arthroplasty. COMPLICATIONS: None. ESTIMATED BLOOD LOSS: 100 mL. FLUID REPLACEMENT: 800 mL crystalloid fluid replacement. ANESTHESIA: General. SPECIMENS: Right femoral head sent for pathology. OPERATIVE INDICATIONS: The patient is an 88-year-old male who sustained a mechanical fall several days ago. He had the acute onset of pain and unable to ambulate afterwards. He was brought to Emergency Room. X-ray, displaced femoral neck fracture. He was admitted to the medicine service and medically optimized. The patient and family elected to proceed with surgical treatment. OPERATIVE IMPLANTS: Operative implants consisted of: 1. Biomet generation 4, size 11 high offset cemented polished femoral stem. 2. A size 12 distal centralizer. 3. 0/28 mm articular ball. 4. A 53 bipolar shell. OPERATIVE PROCEDURE: The patient was taken to the operating room, identified and placed on the operating table in supine position. All contact areas were appropriately padded. IV antibiotics were provided by anesthesia team. A general anesthetic was implemented. The patient was then placed in the left lateral decubitus position. An axillary roll was placed. Stlberg hip positioner was used for positioning. The right hip and leg were then prepped and draped in usual sterile fashion. I did scrub the leg first with Hibiclens and then prepped with ChloraPrep and then the right leg was then prepped and draped in usual sterile fashion. A posterolateral approach to the right hip was then performed through a curvilinear incision centered over the greater trochanter. Sharp dissection was carried out through the subcutaneous tissue down to the level of the IT band and gluteal fascia. The IT band and gluteal fascia were incised longitudinally in line with skin incision. The underlying greater trochanteric bursa was excised. The piriformis and external rotators were tagged and taken off the posterior aspect of the femur. Great care was taken throughout the procedure to protect the sciatic nerve at all times. Posterior capsulotomy was then performed leaving a large flap for later repair. Hip was internally rotated. Femoral neck osteotomy cut was made just below the level of the fracture site. The remaining femoral neck as well as the femoral head removed. I trialed the acetabulum and a 53 mm size was selected. Attention was then drawn to the femur. The proximal femur was entered with a cookie cutter followed by canal finder and lateralizing reamer. I then broached beginning with a size 7 progressing up to 11. We got pretty good fit with 11. I trialed the hip and the hip was fully stable with the high offset stem and the 0 neck with the hip in full extension and external rotation, flexion to 90 degrees, internal rotation over 70 degrees. I used the high offset stem to maximize the stability through his severe dementia. We also maximized the anteversion. We elected to place these implants. All trial implants were removed. A large cement restrictor was placed. I irrigated the wound extensively. A double batch of Palacos G cement was mixed. A Biomet generation 4 polished size 11 high offset stem with a 12 centralizer was then implanted after injecting the canal with cement. I maximized the anteversion. Once the cement hardened, a 0/28 mm articular ball and a 53 mm bipolar shell was placed. Hip was located once again and found to be stable. Attention was then drawn toward closing. The wound was irrigated with copious amounts of normal saline. I did inject locally with 60 mL of 0.5% Marcaine with epinephrine. The posterior capsule was then repaired with #2 Ti-Cron suture in a [id number] fashion. The remaining of the posterior capsule and external rotators were repaired to the posterior hip abductors with #2 Ti-Cron suture. The IT band and gluteal fascia were then closed with #1 PDS suture in running fashion. The subcutaneous tissue was then closed with 2 layers with the deep layer of 0 Vicryl suture and subcutaneous tissues with 2-0 Dexon suture in a buried interrupted fashion. The skin was closed with skin eileen. Leg was then cleaned and dried and a sterile dressing of Xeroform, 4 x 4's, ABD pad and foam tape was applied. The patient was then brought out of general anesthesia and transferred to the recovery room in stable condition. The patient tolerated the procedure well with no complication. All needle and sponge counts were correct at the end of the operation. I attest to the content of the Intraoperative Record and any orders documented therein. Any exception s are noted below.
[2018-03-29] MEDS ORDERED: ERGOCALCIFEROL 50,000 UNITS CAP PO SCH (14:00)
[2018-03-29] MEDS ORDERED: HYDROmorphone INJ 0.5 MG/0.5 ML SYR IV PRN (17:43)
[2018-03-29] MEDS: SENNA 8.6 MG TAB PO SCH (17:50)
[2018-03-29] MEDS: DOCUSATE SODIUM/SENNA 50/8.6MG TAB PO SCH (17:50)
[2018-03-29] MEDS: HEPARIN SOD 5,000 UNIT/0.5 ML VIAL SQ SCH (22:11)
--- NOTE | 2018-03-29 23:02 | Progress Note ---
DATE: 03/29/2018 SUBJECTIVE: An 88-year-old gentleman with underlying dementia postop day 1 from right cemented bipolar hip arthroplasty for fracture. He seems to be doing well now. He was apparently agitated earlier and removed his dressing. He denies any pain. He is sitting up in his bedside chair, talking nonsense. OBJECTIVE: VITAL SIGNS: Temperature is 36.6. Vital signs stable. GENERAL: Reveals a pleasant elderly male. He is sitting up in his bedside chair and looks comfortable. He is talking just a bunch of nonsense. EXTREMITIES: Examination of the right hip reveals the dressing currently to be in place. There is no significant drainage. Leg lengths were equal. Hip is located. He is neurologically intact. LABORATORY DATA: Hemoglobin 14.2. Hematocrit 42.8. Electrolytes are stable. ASSESSMENT: An 88-year-old gentleman with some underlying dementia postop day 1 from right cemented bipolar hip arthroplasty for fracture. Orthopedically, he is doing well. He has got pretty significant dementia and severe bouts of confusion. PLAN: 1. DVT prophylaxis including thigh-high TEDs, SCDs, and aspirin twice a day for 6 weeks. 2. PT/OT. Weight bear as tolerated per right total hip protocol. 3. Pain control. I would stick with Tylenol for pain to avoid any exacerbation of his confusion. 4. Medical management as per the medicine service. 5. Disposition: He is orthopedically stable and acceptable for discharge any time medically stable. I need to see him back 2 weeks out from his surgery date. Any orthopedic questions can be directed to me at [phone]. He can be fully weightbearing on this. He should obey hip precautions.
[2018-03-30] MEDS: KETOROLAC TROMETHAMINE 15 MG/ML VIAL IV PRN (00:30)
[2018-03-30] MEDS: HEPARIN SOD 5,000 UNIT/0.5 ML VIAL SQ SCH ×3 (06:04→21:29)
[2018-03-30] MEDS: POLYETHYLENE (MIRALAX) 17 GM PACK PO SCH ×4 (06:08→23:32)
[2018-03-30 07:42] LABS: Hematocrit (blood only) 39.5 % (42-52); Hemoglobin 13.2 g/dL (14.0-18.0); Mean Corpuscular Hgb Conc 33.4 g/dL (32-36); Mean Platelet Volume 9.9 fL (7.4-10.4); Platelet Count 153 K/uL (130-400); RDW Coefficient of Variation 12.6 % (11.5-14.5); Red Blood Count 4.44 M/uL (4.7-6.1); White Blood Count 7.08 K/uL (4.8-10.8)
[2018-03-30] MEDS: SERTRALINE HCL 50 MG TABLET PO SCH (08:11)
[2018-03-30] MEDS: METOPROLOL SUCC 50MG EXT REL TAB PO SCH (08:11)
[2018-03-30] MEDS: CHOLECALCIFEROL 1,000 UNITS TAB PO SCH (08:11)
[2018-03-30] MEDS: ACETAMINOPHEN 325 MG TAB PO SCH ×4 (08:11→21:59)
[2018-03-30] MEDS: ASPIRIN 81 MG ECTAB PO SCH ×2 (08:12→21:26)
--- NOTE | 2018-03-30 09:52 | Progress Note ---
DATE: 03/30/2018 SUBJECTIVE: An 88-year-old gentleman, postop day 2 from right cemented bipolar hip arthroplasty for fracture. He is lying in bed this morning and sleeping. Difficult to arouse. Looks comfortable. OBJECTIVE: VITAL SIGNS: Temperature is 36.3. Vital signs stable. Slightly tachycardic. GENERAL: Physical examination shows a elderly male who is lying in bed. He is sleeping soundly. Looks to be in no acute distress. EXTREMITIES: Examination of the right leg reveals the dressing to be clean, dry and in place. Leg lengths were equal. Hip is located. LABORATORY DATA: Hemoglobin 13.2. Hematocrit 39.5. ASSESSMENT: An 88-year-old gentleman postop day 2 from a right bipolar hip arthroplasty for fracture. Orthopedically, he is doing well. He has got pretty significant dementia and significant mental status changes from time to time. He looks comfortable and sedated this morning. PLAN: 1. DVT prophylaxis including thigh-high TEDs, SCDs, and aspirin twice a day for 6 weeks. 2. PT/OT. Weight bear as tolerated. Right total hip protocol. 3. Pain control. I will stick to Tylenol only. I would eliminate any narcotics to avoid excessive sedation and confusion. 4. Medical management as per the medicine service. 5. Disposition: He is orthopedically stable and acceptable for discharge any time. I need to see him back 2 weeks out from surgery. Any orthopedic questions can be directed at [phone].
--- NOTE | 2018-03-30 13:37 | Family Medicine Progress Note ---
Date of Service March 30, 2018 Assessment & Plan (1) Closed fracture of right hip: 88M with a PMHx of dementia presents to the ER with a mechanical fall while at home 03/26, brought to ED by son with whom he lives, due to limited mobility and pain. Found to have closed right hip fracture on X-ray. Closed fracture of right hip, s/p hip arthroplasty POD 2 Hypovitaminosis D -- vit d level at 20 Continue tylenol scheduled PO Dilaudid PRN for mod/severe pain, caution in light of dementia PT/OT to SNF (referral made to [facility]) add vit D daily, + 50,000 units weekly, to be continued on discharge-- to recheck vit d level in 3 months. Per Ortho, pt is on ASA BID for DVT Prophylaxis Paroxysmal Atrial fibrillation, known per outpt record has refused coumadin "adamantly" in the outpatient setting due to previous episode of genitourinary bleeding. TTE unremarkable last TSH from Nov 2016 1.85. continue home Toprol XL 50mg daily CAD RCA stent in 2014 allegedly allergic to lipitor and plavix Restart home ASA 81mg daily now that post op Bladder cancer followed by urology as of 2015 with cystoscopy with fulguration for bladder tumor 2014 Dementia stable, reorientation Depression c/w PO sertraline FEN/GI: Regular diet. DVT ppx: SCDs. Heparin SQ TID + ASA DISPO: Med surg. To SNF for rehab -- POA Nusrat Gilmore ([phone]) and she and family are in favor of SNF for rehab. FULL CODE (2) Atrial fibrillation: (3) Fall: (4) DVT prophylaxis: (5) Depression: (6) Dementia: Supervising Physician Co-Signing Physician Notes I personally examined the patient and verified all bryant points of history and exam, discussed case, and agree with decision making with Dr Fernandez. No meaningful HPI or review of systems obtainable from patient. Vitals noted, in general he is disoriented but appears to be in no distress. HEENT normal cephalic atraumatic mucous membranes are moist. Lungs unlabored no accessory muscle use good effort. Skin shows no rashes pallor or icterus. Hip fracturepost repair, PT/OT eval and treat, awaiting SNF Vitamin D deficiencyreplace, repeat levels in about 12 weeks, strongly consider DEXA as an outpatient DVT prophylaxispostop per orthopedics (aspirin twice daily) Dementia with agitationpain control, supportive care, supervision, and redirection when possible. Appears most beneficial at SNF. Awaiting bed Atrial fibrillationcontinue with rate control, he apparently declined anticoagulation whenever he had the ability to make informed decisions, based on prior documentation. Subjective No acute events overnight. S/p hip arthroplasty. Tolerating po. PT/OT recommend skilled for rehab - manager case management referral for [facility] this AM. Pt is unable to give any meaning HPI. He is able to make conversation however has moderate to advanced dementia. He is pleasant and hard of hearing. ROS: Unattainable. Physical Exam 2 Vital Signs (Past 24 Hours): Last Vital Signs Temp 36.3 C L 03/30/18 07:17 Pulse 110 H 03/30/18 07:17 Resp 16 03/30/18 07:17 BP 125/73 03/30/18 07:17 Pulse Ox 93 03/30/18 07:17 Constitutional: no acute distress ENMT: Mouth: no dentures, no chipped teeth and no loose teeth Neck: normal visual inspection Respiratory: Auscultation: lungs clear to auscultation bilaterally Cardiovascular: Rate/Rhythm: regular rate and regular rhythm Vessels: no carotid bruit Gastrointestinal (Abdomen): normal bowel sounds, soft, nontender, no hepatosplenomegaly Inspection/Auscultation: abdomen normal to inspection Musculoskeletal: Extremities: extremities normal to inspection; no muscle atrophy and no cyanosis Neurologic: PERRL, EOMI, accommodation nl, no face palsy, no dysarthria normal touch/pain/proprioception and moves all extremities Motor/Sensory: no tremor Pt is pleasant, would like to go home, doesn't know why he is in the hospital, asks the same questions over and over again, does not remember items just spoken about. Psychiatric: Orientation: alert _ (1) Atrial fibrillation Atrial fibrillation type: unspecified Qualified Code(s): I48.91 - Unspecified atrial fibrillation (2) Fall Encounter type: initial encounter Qualified Code(s): W19.XXXA - Unspecified fall, initial encounter (3) Closed fracture of right hip Encounter type: initial encounter Fracture healing: Qualified Code(s): S72.001A - Fracture of unspecified part of neck of right femur, initial encounter for closed fracture
[2018-03-30] MEDS: SENNA 8.6 MG TAB PO SCH (21:26)
[2018-03-30] MEDS: DOCUSATE SODIUM/SENNA 50/8.6MG TAB PO SCH (21:29)
[2018-03-31] MEDS: KETOROLAC TROMETHAMINE 15 MG/ML VIAL IV PRN (01:41)
[2018-03-31] MEDS: HEPARIN SOD 5,000 UNIT/0.5 ML VIAL SQ SCH (05:55)
[2018-03-31] MEDS: POLYETHYLENE (MIRALAX) 17 GM PACK PO SCH ×3 (06:01→18:59)
[2018-03-31] MEDS: CHOLECALCIFEROL 1,000 UNITS TAB PO SCH (07:41)
[2018-03-31] MEDS: METOPROLOL SUCC 50MG EXT REL TAB PO SCH (07:41)
[2018-03-31] MEDS: SERTRALINE HCL 50 MG TABLET PO SCH (07:42)
[2018-03-31] MEDS: ACETAMINOPHEN 325 MG TAB PO SCH ×4 (07:42→20:23)
[2018-03-31] MEDS: ASPIRIN 81 MG ECTAB PO SCH ×2 (07:42→19:41)
--- NOTE | 2018-03-31 08:27 | Progress Note ---
DATE: 03/31/2018 SUBJECTIVE: An 88-year-old gentleman postop day 3 from right cemented bipolar hip arthroplasty for fracture. He is doing okay. He is resting in bed and denies any significant pain. OBJECTIVE: VITAL SIGNS: Temperature 36.9. Vital signs stable. GENERAL: Physical examination shows a pleasant elderly male. He is sitting up in bed, looks reasonably comfortable. Still quite confused. EXTREMITIES: Examination of the right hip reveals the incision to be clean, dry and intact. Little bruising. Minimal swelling. Hip is located. He is neurologically intact. ASSESSMENT: An 88-year-old gentleman postop day 3 from a right cemented bipolar hip arthroplasty for fracture. He is orthopedically stable. He has got underlying dementia. His pain seems controlled. Hip is located. He is neurologically intact. PLAN: 1. DVT prophylaxis including thigh-high TEDs, SCDs, and aspirin twice a day. 2. PT/OT. Weight bear as tolerated. Right total hip protocol. 3. Pain control, doing okay with current pain regimen. I stick to just Tylenol for pain. 4. Medical management as per the medicine service. 5. Disposition: He is orthopedically and medically stable and acceptable for discharge any time. I need to see him back 2 weeks from the surgery date. I am going to be leaving town today, so we will sign off on him today. Any orthopedic questions can be directed to my partner, Dr. Bray.
[2018-03-31] MEDS ORDERED: PNEUMOCOCCAL POLYSACCHARIDES 25 MCG/0.5 ML VIAL/SYR IM ONE (09:45)
[2018-03-31] MEDS ORDERED: PNEUMOCOCCAL ADMINISTRATION CHARGE ONE (09:45)
--- NOTE | 2018-03-31 10:44 | Family Medicine Progress Note ---
Date of Service March 31, 2018 Assessment & Plan (1) Closed fracture of right hip: 88M with a PMHx of dementia presents to the ER with a mechanical fall while at home 03/26, brought to ED by son with whom he lives, due to limited mobility and pain. Found to have closed right hip fracture on X-ray. Closed fracture of right hip, s/p hip arthroplasty on 03/29/18 Hypovitaminosis D -- Vit d level at 20 Continue tylenol scheduled PO PRN for pain. Dilaudid PRN for mod/severe pain, caution in light of dementia PT/OT to SNF (referral made to [facility]) 2000IU Vit D daily, + 50,000 units weekly, to be continued on discharge-- to recheck Vitamin D level in 3 months. Per Ortho, 1. DVT prophylaxis including thigh-high TEDs, SCDs, and aspirin twice a day. 2. PT/OT. Weight bear as tolerated. Right total hip protocol. 3. Pain control, doing okay with current pain regimen. I stick to just for pain. 4. Medical management as per the medicine service. 5. Disposition: He is orthopedically and medically stable and acceptable for discharge any time. I need to see him back 2 weeks from the surgery date. I am going to be leaving town today, so we will sign off on him today. Any orthopedic questions can be directed to my partner, Dr. Bray. Paroxysmal Atrial fibrillation, known per outpt record has refused coumadin "adamantly" in the outpatient setting due to previous episode of genitourinary bleeding. TTE unremarkable last TSH from Nov 2016 1.85. continue home Toprol XL 50mg daily CAD RCA stent in 2014 allegedly allergic to lipitor and plavix Restart home ASA 81mg daily now that post op Bladder cancer followed by urology as of 2016 with cystoscopy with fulguration for bladder tumor 2014 Dementia stable, reorientation Depression c/w PO sertraline Onychomycosis Daughter Nusrat requested something for nail fungus, options discuss, settled on topical therapy, we do not carry any on formulary, I have given an Rx for Jublia to pt's macrina Silverio, she will have to bring in medication, it will need to be sent to pharmacy so we can start it. FEN/GI: Regular diet. DVT ppx: SCDs. STOPPED Heparin SQ TID (per Dr. Seals's note will just use ASA BID) DISPO: Med surg. To SNF for rehab, POA Nusrat Gilmore ([phone]) and she and family are in favor of SNF for rehab. FULL CODE (2) Atrial fibrillation: (3) Fall: (4) DVT prophylaxis: (5) Depression: (6) Dementia: Supervising Physician Co-Signing Physician Notes I personally examined the patient and verified all bryant points of history and exam, discussed case, and agree with decision making with Dr Muir. No meaningful HPI or review of systems obtainable from patient. He is somewhat agitated, saying "I do not know where the hell I am or what happened" I try my best to orient him to the fact that he is in the hospital after hip fracture and healing nicely, but as expected it does not really have much lasting impact. Vitals noted, in general he is disoriented but appears to be in no distress. HEENT normal cephalic atraumatic mucous membranes are moist. Lungs unlabored no accessory muscle use good effort. Skin shows no rashes pallor or icterus. He is sitting on the side of the bed no distress. Hip fracturepost repair, PT/OT eval and treat, awaiting SNF, and is stable to go once a bed is available. Vitamin D deficiencycontinue to replace, repeat levels in about 12 weeks, strongly consider DEXA as an outpatient DVT prophylaxispostop per orthopedics (aspirin twice daily for about 6 weeks) Dementia with agitationoverall seems to be doing reasonably well in this regard Atrial fibrillationcontinue with rate control, which has been reasonable given the circumstances, he apparently declined anticoagulation whenever he had the ability to make informed decisions, based on prior documentation. Subjective No acute events overnight. S/p hip arthroplasty. Tolerating po and ambulating as expected for pt's condition. Awaiting placement. Pt is pleasantly confused and unable to provide meaningful subjective exam and ROS. Pt is asking for his daughter Nusrat, he does not understand where he is or why he is in the hospital. He forgets within seconds when told he is in the hospital and here for a hip fracture. Nusrat, daughter, seen at bedside, she is requested topical antifungal for fingernails. ROS: Unattainable. Physical Exam 2 Vital Signs (Past 24 Hours): Last Vital Signs Temp 36.9 C 03/30/18 23:15 Pulse 86 03/31/18 01:00 Resp 21 03/30/18 23:15 BP 118/75 03/30/18 23:15 Pulse Ox 95 03/30/18 23:15 Constitutional: no acute distress ENMT: Mouth: no dentures, no chipped teeth and no loose teeth Neck: normal visual inspection Respiratory: Auscultation: lungs clear to auscultation bilaterally Cardiovascular: Rate/Rhythm: regular rate and regular rhythm Vessels: no carotid bruit Gastrointestinal (Abdomen): normal bowel sounds, soft, nontender, no hepatosplenomegaly Inspection/Auscultation: abdomen normal to inspection Musculoskeletal: Extremities: extremities normal to inspection; no muscle atrophy and no cyanosis Skin: + nail abnormality (onychomycosis on 3 nails of the right hand. ) Neurologic: PERRL, EOMI, accommodation nl, no face palsy, no dysarthria normal touch/pain/proprioception and moves all extremities Motor/Sensory: no tremor Psychiatric: Orientation: alert (not oriented to time, or place, oriented to person, doesn't remember why he is in the hospital even after being told 30 seconds previously. ) and cooperative Apperance: appropriately dressed and appropriately groomed Eye Contact: good eye contact _ (1) Atrial fibrillation Atrial fibrillation type: unspecified Qualified Code(s): I48.91 - Unspecified atrial fibrillation (2) Fall Encounter type: initial encounter Qualified Code(s): W19.XXXA - Unspecified fall, initial encounter (3) Closed fracture of right hip Encounter type: initial encounter Fracture healing: Qualified Code(s): S72.001A - Fracture of unspecified part of neck of right femur, initial encounter for closed fracture
[2018-03-31] MEDS: SENNA 8.6 MG TAB PO SCH (19:41)
[2018-03-31] MEDS: DOCUSATE SODIUM/SENNA 50/8.6MG TAB PO SCH (19:41)
[2018-04-01] MEDS: POLYETHYLENE (MIRALAX) 17 GM PACK PO SCH ×5 (00:50→23:31)
--- NOTE | 2018-04-01 07:19 | Family Medicine Progress Note ---
Date of Service April 01, 2018 Assessment & Plan (1) Closed fracture of right hip: 88M with a PMHx of dementia presents to the ER with a mechanical fall while at home 03/26/18, brought to ED by son with whom he lives, due to limited mobility and pain. Found to have closed right hip fracture on X-ray. Hip Arthroplasty on 03/29/18. Pt came from home, next of kin have agreed to Placement in shelter facility. Closed fracture of right hip, s/p hip arthroplasty on 03/29/18 Per Ortho, 1. DVT prophylaxis including thigh-high TEDs, SCDs, and aspirin twice a day. 2. PT/OT. Weight bear as tolerated. Right total hip protocol. 3. Pain control, doing okay with current pain regimen. I stick to just for pain. 4. Medical management as per the medicine service. 5. Disposition: He is orthopedically and medically stable and acceptable for discharge any time. I need to see him back 2 weeks from the surgery date. I am going to be leaving town today, so we will sign off on him today. Any orthopedic questions can be directed to my partner, Dr. Bray. - PT/OT to SNF (referral made to [facility]). - Dilaudid PRN for mod/severe pain, caution in light of dementia - ASA BID will be continued for 6 weeks post fracture Hypovitaminosis D in setting of Hip Fx. Vit D = 20, in setting of hip fx will supplement with Vit D3 2000IU +[id number] weekly on DC, recommend rechecking Vitamin D level in 3 months (blue Rx script given to daughter Nusrat by Dr. Valdez). Per uptodate, regarding bone densometry in hip fractures, "All patients with a recent hip fracture should be treated for their underlying osteoporosis. Bone densitometry is indicated to establish a baseline to monitor treatment response , but not to determine whether to initiate treatment. Accordingly, bone densitometry is not needed prior to initiating treatment in patients with hip fracture." - Recommend holding off bone densomitry Regarding bisphosphonate therapy in hip fractures on Uptodate, " We typically initiate bisphosphonates four to six weeks postfracture, as long as the patient is able to sit upright for at least 30 minutes (oral bisphosphonates)." - Will include recommendations to start bisphosphonate therapy as outpatient in 6 weeks as long as patient can sit upright for at least 30 min. Paroxysmal Atrial fibrillation, known per outpt record has refused coumadin "adamantly" in the outpatient setting due to previous episode of genitourinary bleeding. TTE unremarkable last TSH from Nov 2016 1.85. continue home Toprol XL 50mg daily CAD RCA stent in 2014 allegedly allergic to lipitor and plavix Restart home ASA 81mg daily now that post op Bladder cancer followed by urology as of 2015 with cystoscopy with fulguration for bladder tumor 2014 Dementia stable, reorientation Depression c/w PO sertraline Onychomycosis Daughter Nusrat requested something for nail fungus, options discuss, settled on topical therapy, we do not carry any on formulary, I have given an Rx for Jublia to pt's drewuthsteve Nusrat, she will have to bring in medication, OK to start therapy if Rx is brought to hosptal. FEN/GI: Regular diet. DVT ppx: SCDs. STOPPED Heparin SQ TID (per Dr. Seals's note will use ASA BID) DISPO: Med surg. To SNF for rehab, POA Nusrat Gilmore ([phone]) and she and family are in favor of SNF for rehab. FULL CODE (2) Atrial fibrillation: (3) Fall: (4) DVT prophylaxis: (5) Depression: (6) Dementia: Supervising Physician Co-Signing Physician Notes I personally examined the patient and verified all bryant points of history and exam, discussed case, and agree with decision making with Dr Muir. No meaningful HPI or review of systems obtainable from patient. Vitals noted,resting comfortably, no distress. HEENT normal cephalic atraumatic mucous membranes are moist. Lungs unlabored no accessory muscle use good effort. Skin shows no rashes, pallor, or icterus. Hip fracturepost repair, PT/OT eval and treat, awaiting SNF, and is stable to go once a bed is available. Discussion with case management, unfortunately not today. Vitamin D deficiencycontinue current replacement, repeat levels in about 12 weeks, strongly consider DEXA as an outpatient DVT prophylaxispostop per orthopedics (aspirin twice daily for about 6 weeks) Dementia with agitationoverall seems to be doing reasonably well in this regard , and the risks and benefits of going to a facility versus going home definitely favor going to facility given his weakness and need for assistance. Atrial fibrillationcontinue with rate control, which has been acceptable given the circumstances, he apparently declined anticoagulation whenever he had the ability to make informed decisions, based on prior documentation. Subjective No acute events overnight. Pt resting comfortably in bed. Tolerating PO and ambulating well post op per nursing staff. Awaiting placement to [facility]. Pt is pleasantly confused and unable to provide meaningful subjective exam and ROS. No acute changes in condition since previous day. ROS: Unattainable due to pt' underlying baseline medical condition. Physical Exam 2 Vital Signs (Past 24 Hours): Last Vital Signs Temp 36.6 C 04/01/18 00:50 Pulse 98 H 04/01/18 00:50 Resp 20 04/01/18 00:50 BP 137/81 04/01/18 00:50 Pulse Ox 97 04/01/18 00:50 Constitutional: no acute distress ENMT: Ears: + hearing impairment (very poor hearing) Mouth: no dentures, no chipped teeth and no loose teeth Neck: normal visual inspection Respiratory: Auscultation: lungs clear to auscultation bilaterally Cardiovascular: Rate/Rhythm: regular rate and regular rhythm Vessels: no carotid bruit Gastrointestinal (Abdomen): normal bowel sounds, soft, nontender, no hepatosplenomegaly Inspection/Auscultation: abdomen normal to inspection Musculoskeletal: Extremities: extremities normal to inspection; no muscle atrophy and no cyanosis Skin: + nail abnormality (onychomycosis on 3 nails of the right hand. ) Neurologic: PERRL, EOMI, accommodation nl, no face palsy, no dysarthria normal touch/pain/proprioception and moves all extremities Motor/Sensory: no tremor Psychiatric: Orientation: alert (not oriented to time, or place, oriented to person, doesn't remember why he is in the hospital even after being told 30 seconds previously. ) and cooperative Apperance: appropriately dressed and appropriately groomed Eye Contact: good eye contact _ (1) Atrial fibrillation Atrial fibrillation type: unspecified Qualified Code(s): I48.91 - Unspecified atrial fibrillation (2) Fall Encounter type: initial encounter Qualified Code(s): W19.XXXA - Unspecified fall, initial encounter (3) Closed fracture of right hip Encounter type: initial encounter Fracture healing: Qualified Code(s): S72.001A - Fracture of unspecified part of neck of right femur, initial encounter for closed fracture
[2018-04-01] MEDS: ACETAMINOPHEN 325 MG TAB PO SCH ×4 (09:33→22:28)
[2018-04-01] MEDS: SERTRALINE HCL 50 MG TABLET PO SCH (09:33)
[2018-04-01] MEDS: ASPIRIN 81 MG ECTAB PO SCH ×2 (09:34→22:29)
[2018-04-01] MEDS: CHOLECALCIFEROL 1,000 UNITS TAB PO SCH (09:34)
[2018-04-01] MEDS: METOPROLOL SUCC 50MG EXT REL TAB PO SCH (09:34)
[2018-04-01] MEDS: SENNA 8.6 MG TAB PO SCH (21:43)
[2018-04-01] MEDS: DOCUSATE SODIUM/SENNA 50/8.6MG TAB PO SCH (21:44)
[2018-04-02] MEDS ORDERED: Nursing to Pharmacy Communication ONE (05:00)
[2018-04-02] MEDS: ASPIRIN 81 MG ECTAB PO SCH (10:20)
[2018-04-02] MEDS: METOPROLOL SUCC 50MG EXT REL TAB PO SCH (10:20)
[2018-04-02] MEDS: CHOLECALCIFEROL 1,000 UNITS TAB PO SCH (10:20)
[2018-04-02] MEDS: SERTRALINE HCL 50 MG TABLET PO SCH (10:20)
[2018-04-02] MEDS: ACETAMINOPHEN 325 MG TAB PO SCH (10:20)
--- NOTE | 2018-04-02 14:53 | Discharge Summary ---
Date of Service April 02, 2018 Admission HPI Per Admitting Provider 88M here for mechanical fall while at home 03/26, brought to ED by son with whom he lives, due to limited mobility and pain. Found to have closed right hip fracture on XR. Family not present in room during exam. Very little HPI provided by patient due to baseline of moderate to advanced dementia. HPI received from admitting ER Doc. Pt was accompanied by son, per son pt lives at home, has a baseline of dementia, there was a mechanical fall that occured on the evening of 03/26/18. Pt declined coming to the hospital, pt went to sleep and woke up in severe pain and inability to walk. Pt was brought into the ER and was found to have an acute mildly impacted transcervical fracture of the right femur. Pt was also found to be in Afib in the ER and given 5mg IV Metorpolol. On review of outpatient records, pt has known paroxysmal atrial fibrillation and is to be on Toprol XL 50mg daily, has refused coumadin "adamantly" in the outpatient setting due to previous episode of genitourinary bleeding. ED Course: Pt received NSS, Ativan and Morphine in the ER. Pt was also found to be in Afib without any previous history of Afib. Pt was given 5mg IV Metoprolol in the ER. PMH is also significant for CAD with cardiac catheterization 2014 showed 40% left main disease as well as mild to moderate stenosis in other vessels + Bare- metal stent was placed in the RCA at that time, Glaucoma, HLD, HTN, bladder cancer, memory impairment. PSH cystoscopy with fulguration for bladder tumor 2014 Meds: ASA, Toprol XL 50mg daily ALL: lipitor, plavix, bactrim DS Admission Exam Per Admitting Provider Vitals noted as above. Atrial fibrillation on telemetry, rate <100. GENERAL: Awake, oriented to person but not to time or place. Well-appearing, in no distress HENT: Normocephalic, atraumatic. EYES: Normal conjunctiva. Sclera non-icteric. NECK: Supple. Full range of motion. no JVD RESPIRATORY: Clear to auscultation. CARDIAC: Irreg/irreg, rate <100. Extremities warm and well perfused. Pulses equal. ABDOMEN: Soft, non-distended. No tenderness to palpation. No rebound or guarding. No masses. LOWER EXTREMITIES: Calves are equal size bilaterally and non-tender. No edema. No discoloration. MSK: RLE is externally rotated, neurovascularly in tact. Mild TTP at right hip. NEURO: No gross focal motor deficits noted, CN II-XII in tact. SKIN: No rash or jaundice noted. No visible bruising. Principal Diagnosis R closed hip fracture s/p fall Discharge Exam General: In NAD, pleasantly confused and tangential in conversation Neuro: alert and oriented to person only CV: RRR no murmurs, rubs or gallops Pulm: CTAB equal breath sounds bilaterally Abdomen: +BS, NTTP in all quadrants and non-distended LE: R hip arthroplasty surgical site clean, and dry with intact eileen, mild surrounding erythema and ecchymosis, mild tenderness to palpation of surgical site; no LE pitting edema or calf tenderness Discharge Data Allergies Allergy/AdvReac Type Severity Reaction Status Date / Time atorvastatin [From Lipitor] Allergy Unverified 03/27/18 11:16 clopidogrel [From Plavix] Allergy Unverified 03/27/18 11:16 sulfamethoxazole Allergy Unverified 03/27/18 11:16 [From Bactrim] trimethoprim [From Bactrim] Allergy Unverified 03/27/18 11:16 Consultations 03/27/18 09:20 ED Decision to Admit Stat 03/27/18 11:41 Consult Anesthesiology Routine Consult Case Management - Discharge Planning Routine Consult Orthopedic Surgery Routine 03/28/18 20:59 Consult Case Management - Discharge Planning Routine Procedures Performed Operation Date: 03/28/18 14:30 Actual Procedures p Right Cemented Bipolar Hemiarthroplasty(Right) - Josemanuel Seals MD Hospital Course (1) Closed fracture of right hip: 88M with a PMHx of dementia presents to the ER with a mechanical fall while at home on 03/26/18, brought to ED by son with whom he lives, due to limited mobility and pain. Found to have closed right hip fracture on X-ray. Hip Arthroplasty on 03/29/18. Pt came from home, next of kin have agreed to Placement in [facility] facility. Closed fracture of right hip, s/p hip arthroplasty on 03/29/18 Per Ortho, 1. DVT prophylaxis including thigh-high TEDs, SCDs, and aspirin twice a day x 6 weeks 2. PT/OT. Weight bear as tolerated. Right total hip protocol. 3. Pain control with tylenol alba 4. Follow up with orthopedist 2 weeks from the surgery date Hypovitaminosis D in setting of Hip Fx. - Vit D = 20, in setting of hip fx supplement with Vit D3 2000IU recommend rechecking Vitamin D level in 3 months (script given to daughter Nusrat by Dr. Valdez). - Recommend bisphosphonate therapy in 6 weeks as long as patient can sit upright for at least 30 min. Paroxysmal Atrial fibrillation, known per outpt record has refused coumadin "adamantly" in the outpatient setting due to previous episode of genitourinary bleeding. TTE unremarkable last TSH from Nov 2016 1.85. continue home Toprol XL 50mg daily CAD RCA stent in 2014 allegedly allergic to lipitor and plavix On ASA Dementia stable, reorientation Depression c/w PO sertraline Onychomycosis - prescribed Jublia Bladder cancer followed by urology as of 2015 with cystoscopy with fulguration for bladder tumor 2014 (2) Atrial fibrillation: (3) Fall: (4) DVT prophylaxis: (5) Depression: (6) Dementia: Total Time Total Time Spent Total Time Spent (In Minutes): 60 Total Time Includes: Examination of the Patient, Discharge Planning, Medication Reconciliation and Communication With Other Providers Discharge Plan Discharge Items Patient Disposition: Transfer Long-Term Fac Reason For Visit: RIGHT HIP FRACTURE Discharge Diagnosis: RIGHT HIP FRACTURE S/P RT HIP ARTHROPLASTY Condition: Good Discharge Goals: Decrease discomfort, Improve function and Therapeutic intervention Activity: Per 'Additional Instructions' section Activity Comment: Total Hip Precautions Weightbearing: Right weightbearing Weightbearing Comment: Total Hip Precautions Non-emergency contact: Primary Care Provider and Surgeon Call non-emergency contact if: you have any medication questions, your temperature is above 101.5 and your wound has increased drainage Follow-up/Referrals: Josemanuel Seals MD [Surgeon] - (Follow-up with Orthopedics 2 weeks from surgery date.) Diet: Heart Healthy Addtl Provider Instructions: Right hip closed fracture, s/p right hip arthroplasty 03/28/18 -continue scheduled tylenol 650mg QID -avoid opioids due to advanced dementia -aspirin 81mg twice a day for 6 weeks for DVT prophylaxis, then resume regular home dosing of 81mg daily for CAD (unless clinical situation warrants the BID dosing to be longer) -Follow up with orthopaedic 2 weeks from arthroplasty on 03/29/18 -Obey Total Hip Precautions at all times. WBAT to R lower extremity Vit D deficiency -Vitamin D 2000u daily -Recheck in 3 months (Rx provided to daughter) Proxysmal Afib -Continue Toprol 50mg daily -Not on anticoagulation hx of genitourinary bleeding on coumadin (refused) Dementia -Stable Depression -Continue sertraline Onychomycosis -prescribed Jublia Prescriptions: New aspirin [Ecotrin Low Strength] 81 mg Tablet,Delayed Release (Dr/Ec) 81 mg PO BID Qty: 90 RF: 0 efinaconazole [Jublia] 10 % solution with applicator 1 appln TOP DAILY 336 Days Qty: 8 RF: 2 cholecalciferol (vitamin D3) [Vitamin D3] 1,000 unit Tablet 2,000 unit PO QAM Qty: 30 RF: 0 Continue acetaminophen [Tylenol Extra Strength] 500 mg Tablet 500 mg PO UD PRN (Reason: Pain) RF: 0 sertraline 25 mg Tablet 25 mg PO QAM RF: 0 metoprolol succinate [Toprol XL] 50 mg Tablet Extended Release 24 Hr 50 mg PO DAILY RF: 0 Discontinued aspirin [Aspirin Low Dose] 81 mg Tablet,Delayed Release (Dr/Ec) 81 mg PO DAILY RF: 0 Stand-Alone Forms: [facility] Discharge Orders: Discharge Order (Routine); Ordered 04/02/18 Ordered By: Alia Guerra Skilled Items Patient informed of condition?: No (POA informed. ) DNR: No Discharge Level of Care: Acute rehab Communicable Disease: No Discharge Prognosis: Stable Admission Data Admit Date/Time: 03/27/18 10:30 Attending Provider: Angel Bravo Admit Provider: Rafael Zhang Primary Care Provider: David Araya Other Providers: Rafael Zhang ; Jhonathan Ortiz ; Josemanuel Seals Service: Medical Other Interventions: Discharge Summary Assessment (RN) Last Done: 04/02/18 12:38 Pending Studies at Discharge: No DC Date/Time DO NOT enter until pt leaves facility: 04/02/18 13:09 Supervising Physician Co-Signing Physician Notes Attending attestation Pt seen and examined in concert with Dr. Guerra. In agreement with the documented findings as noted in the resident documentation with any exceptions or additions as noted here. Pt resting in chair presently without complaint of pain, though is pleasantly confused and tangential in conversation. On examination, S1/S2 nl RRR, CTAB. Closed right hip fracture - ASA for chemoprophylaxis as noted above incl' BREANA. Pain well controlled at present. For SNF per PT/OT rec Hypovitaminosis D in setting of Hip Fx - continue 2,000 IU daily, consider starting bisphosphonate in 6 wks PAF - continue toprol, refused AC previously and will stand by that decision Resident Activity Tracking Resident Involvement: Resident Care Provided Care Provided: Adult [facility] Medicine
== END 2018-04-02 13:09 | DRG 470 ==
LOC: ED 08:21 → SUATTDRO 10:30 → 2E 10:30 → 3W 03-29 10:52 → 3N 03-29 12:02